=== PATIENT | female | born 1940 | race Caucasian/White ===

== ENCOUNTER → 2017-02-16 | Outpatient (CLI) | payer MEDICARE, BC ==
[2017-02-16 10:00] LABS: HEMATOCRIT 40.7 % (36.0-47.0); HEMOGLOBIN 13.8 g/dL (12.0-15.5); HGB HCT DIFFERENCE 0.7; MEAN CORPUSCULAR HEMOGLOBIN 30.4 pg (27.0-33.4); MEAN CORPUSCULAR HGB CONC 33.9 g/dL (32.0-36.0); MEAN CORPUSCULAR VOLUME 90 fl (80-97); RED BLOOD COUNT 4.54 10^6/uL (3.72-5.28); RED CELL DISTRIBUTION WIDTH 12.7 % (11.5-14.0); WHITE BLOOD COUNT 3.6 10^3/uL (4.0-10.5)
[2017-02-16 10:12] LABS: ANION GAP 12 (5-19); BLOOD UREA NITROGEN 22 mg/dL (7-20); CALCIUM 10.1 mg/dL (8.4-10.2); CARBON DIOXIDE 26 mmol/L (22-30); CHLORIDE 106 mmol/L (98-107); CHOLESTEROL 152.93 mg/dL (0-200); CREATININE RESULT 0.89 mg/dL (0.52-1.25); Direct HDL 77 mg/dL (>40); GLUCOSE 88 mg/dL (75-110); POTASSIUM 4.5 mmol/L (3.6-5.0); SODIUM 144.3 mmol/L (137-145); TRIGLYCERIDES 37 mg/dL (<150)
[2017-02-16 10:22] LABS: DIRECT LDL 55 mg/dL (<100)
== END ==
LOC: OD 09:05
PROVIDERS: ATTEND Family Medicine
DX: E78.2 Mixed hyperlipidemia (principal); I10 Essential (primary) hypertension; Z79.891 Long term (current) use of opiate analgesic; D64.9 Anemia, unspecified
CPT/HCPCS: 36415; 80048; 80061; 83036; 84443; 85027

== ENCOUNTER → 2017-09-05 | Outpatient (CLI) | payer MEDICARE, BC ==
--- NOTE | 2017-09-05 17:11 | WOMENS IMAGING REPORT ---
EXAM DESCRIPTION: 3D SCREENING MAMMO BILAT COMPLETED DATE/TIME: 09/05/2017 10:28 am REASON FOR STUDY: SCREENING MAMMO Z12.31 ENCNTR SCREEN MAMMOGRAM FOR MALIGNANT NEOPLASM OF JENNIE COMPARISON: Multiple since 2008 TECHNIQUE: Standard craniocaudal and mediolateral oblique views of each breast recorded using digita l acquisition and breast tomosynthesis. LIMITATIONS: None. FINDINGS: Findings present which are benign by mammographic criteria. No suspicious masses, calcifi cations or architectural distortion. Pertinent benign findings: Benign breast parenchymal calcifications bilaterally Read with the assistance of CAD. .[facility] - R2 Cenova Version 1.3 .[facility] Imaging - R2 Cenova Version 1.3 .[facility] Imaging - R2 Cenova Version 2.4 .[facility] - R2 Cenova Version 2.4 .[facility] - R2 Zinc Plating Machine Operator Version 9.2 Benign mammographic findings may include one or more of the following: Smooth masses, popcorn/rim/co arse calcifications, asymmetries, post-procedure changes, and lesions with long-standing stability. IMPRESSION: BENIGN MAMMOGRAPHIC FINDINGS. BIRADS 2 BREAST DENSITY: b. There are scattered areas of fibroglandular density. BIRAD: 2 BENIGN FINDING(S) RECOMMENDATION: RECOMMENDATION: ROUTINE SCREENING Please continue yearly bilateral screening tomosynthesis in August 2018 COMMENT: The patient has been notified of the results by letter per SA requirements. Additional no tification policies are in place for contacting patient with suspicious or incomplete findings. Quality ID #[id number]: [employer] [place] [employer] recommends an annual screening mammogram for women aged 40 years or over. This facility utilizes a reminder system to ensure that all patients receive reminder letters, and/or direct phone calls for appointments. This includes reminders for routine scr eening mammograms, diagnostic mammograms, or other Breast Imaging Interventions when appropriate. Th is patient will be placed in the appropriate reminder system. [employer] [place] [employer] (ACR) has developed recommendations for screening MRI of the breast s in certain patient populations, to be used in conjunction with mammography. Breast MRI surveillanc e may be appropriate for women with more than 20% lifetime risk of developing breast cancer as deter mined by genetic testing, significant family history of the disease, or history of mantle radiation f or Hodgkins Disease. ACR Practice Guidelines 2008. DBT Technology DBT is a type of tomographic mammography. With conventional mammography, overlapping breast tissue ma y make lesions difficult to detect, even with good compression. DBT uses an x-ray tube that rotates a round the breast, taking images at different angles. These images are then combined to create thin sl ices of the breast that the radiologist can view as a 3D reconstruction. The ScaleDB unit can perform full-field digital mammograms (2D imaging); or DBT (3D imaging); or both, in a combination mode that quickly performs both the mammogram and the tomosynthesis scan while the breast is still compressed. PQRS 6045F: Fluoroscopic imaging is not utilized for breast tomosynthesis. TECHNICAL DOCUMENTATION: FINDING NUMBER: (1) ASSESSMENT: (1) JOB ID: [id number] [employer]- All Rights Reserved
== END ==
LOC: WI 09:38
PROVIDERS: ATTEND Family Medicine
DX: Z12.31 Encounter for screening mammogram for malignant neoplasm of breast (principal)
CPT/HCPCS: 77063; G0202; 77067

== ENCOUNTER → 2017-12-21 | Outpatient (CLI) | payer MEDICARE, BC ==
--- NOTE | 2017-12-21 15:46 | RADIOLOGY REPORT (SQ) ---
EXAM DESCRIPTION: NM WHOLE BODY BONE SCAN COMPLETED DATE/TIME: 12/21/2017 2:57 pm REASON FOR STUDY: M54.16 RADICULOPATHY, LUMBAR REGION M54.16 RADICULOPATHY, LUMBAR REGION COMPARISON: No available imaging studies for comparison. RADIONUCLIDE AND DOSE: 19.66 millicuries Tc99m HDP. The route of agent administration: Intravenous. ADDITIONAL DRUGS AND DOSES: None. TECHNIQUE: Routine delayed images at 3 hour post radionuclide injection acquired of the bony skeleto n including anterior and posterior whole-body projections and additional focused images as needed. LIMITATIONS: None. FINDINGS: BONES: Mild S-shaped curvature in the spine. Scattered focal areas of activity at several levels. No abnormal uptake in the vertebral bodies. Focal areas of activity in the sternoclavicula r joints and acromioclavicular joints. KIDNEYS: Symmetric excretion without obstruction. OTHER: No other significant finding. IMPRESSION: MILD S-SHAPED CURVATURE IN THE SPINE. SCATTERED FOCAL AREAS OF ACTIVITY CONSISTENT WITH DEGENERATIVE CHANGES. SIMILAR FINDINGS IN THE STERNOCLAVICULAR JOINTS AND ACROMIOCLAVICULAR JOINTS. NO OTHER SIGNIFICANT FINDINGS. COMMENT: Quality measure 147: No available prior imaging studies for comparison TECHNICAL DOCUMENTATION: JOB ID: [id number] [employer]- All Rights Reserved Reading location - IP/workstation name: [email or web address]
== END ==
LOC: RAD 10:43
PROVIDERS: ATTEND Orthopaedic Surgery Orthopaedic Surgery of the Spine
DX: M54.16 Radiculopathy, lumbar region (principal)
CPT/HCPCS: 78306; A9561; Q9969

== ENCOUNTER → 2018-02-22 | Outpatient (CLI) | payer MEDICARE, BC ==
[2018-02-22 09:07] LABS: HEMATOCRIT 38.4 % (36.0-47.0); MEAN CORPUSCULAR HEMOGLOBIN 30.3 pg (27.0-33.4); MEAN CORPUSCULAR HGB CONC 33.7 g/dL (32.0-36.0); MEAN CORPUSCULAR VOLUME 90 fl (80-97); PLATELET COUNT 295 10^3/uL (150-450); RED BLOOD COUNT 4.27 10^6/uL (3.72-5.28); RED CELL DISTRIBUTION WIDTH 13.2 % (11.5-14.0); WHITE BLOOD COUNT 3.3 10^3/uL (4.0-10.5)
[2018-02-22 09:36] LABS: ANION GAP 7 (5-19); BLOOD UREA NITROGEN 20 mg/dL (7-20); CALCIUM 9.8 mg/dL (8.4-10.2); CARBON DIOXIDE 30 mmol/L (22-30); CHLORIDE 103 mmol/L (98-107); CHOLESTEROL 149.04 mg/dL (0-200); GLUCOSE 87 mg/dL (75-110); POTASSIUM 4.4 mmol/L (3.6-5.0); TRIGLYCERIDES 42 mg/dL (<150)
[2018-02-22 09:48] LABS: DIRECT LDL 59 mg/dL (<100)
== END ==
LOC: OD 08:27
PROVIDERS: ATTEND Family Medicine
DX: E78.2 Mixed hyperlipidemia (principal); I10 Essential (primary) hypertension; D64.9 Anemia, unspecified; Z79.899 Other long term (current) drug therapy
CPT/HCPCS: 36415; 80048; 80061; 83036; 84443; 85027

== ENCOUNTER → 2018-03-14 | Outpatient (CLI) | payer MEDICARE, BC ==
--- NOTE | 2018-03-14 13:37 | RADIOLOGY REPORT (SQ) ---
EXAM DESCRIPTION: KUB COMPLETED DATE/TIME: 03/14/2018 10:44 am REASON FOR STUDY: DIARRHEA, UNSPECIFIED,UNSPECIFIED ABDOMINAL PAIN COMPARISON: None. NUMBER OF VIEWS: One view. TECHNIQUE: Supine radiographic image of the abdomen acquired. LIMITATIONS: None. FINDINGS: BOWEL GAS PATTERN: Normal bowel gas pattern. No dilated loops. CALCIFICATIONS: No suspicious calcifications. SOFT TISSUES: No gross mass or suggestion of organomegaly. HARDWARE: Clips right upper quadrant. BONES: No bone lesions or fracture. OTHER: No other significant finding. IMPRESSION: NO RADIOGRAPHIC EVIDENCE FOR ACUTE ABDOMINAL DISEASE. Reading location - IP/workstation name: [email or web address]
== END ==
LOC: OD 10:27
PROVIDERS: ATTEND Family Medicine
DX: R19.7 Diarrhea, unspecified (principal); R10.9 Unspecified abdominal pain
CPT/HCPCS: 74018

== ENCOUNTER → 2018-04-21 | Outpatient (CLI) | payer MEDICARE, BC ==
[2018-04-21 13:32] LABS: HEMATOCRIT 35.5 % (36.0-47.0); HEMOGLOBIN 11.8 g/dL (12.0-15.5); MEAN CORPUSCULAR HEMOGLOBIN 29.6 pg (27.0-33.4); MEAN CORPUSCULAR HGB CONC 33.3 g/dL (32.0-36.0); MEAN CORPUSCULAR VOLUME 89 fl (80-97); PLATELET COUNT 467 10^3/uL (150-450); RED CELL DISTRIBUTION WIDTH 13.8 % (11.5-14.0); WHITE BLOOD COUNT 8.3 10^3/uL (4.0-10.5)
[2018-04-21 14:14] LABS: ALANINE AMINOTRANSFERASE 18 U/L (9-52); ALBUMIN 3.4 g/dL (3.5-5.0); ALKALINE PHOSPHATASE 42 U/L (38-126); ANION GAP 11 (5-19); ASPARTATE AMINO TRANSFERASE 26 U/L (14-36); BILIRUBIN,DIRECT 0.5 mg/dL (0.0-0.4); BILIRUBIN,TOTAL 0.7 mg/dL (0.2-1.3); BLOOD UREA NITROGEN 28 mg/dL (7-20); CALCIUM 9.4 mg/dL (8.4-10.2); CARBON DIOXIDE 28 mmol/L (22-30); CHLORIDE 106 mmol/L (98-107); GLUCOSE 122 mg/dL (75-110); POTASSIUM 4.3 mmol/L (3.6-5.0); SODIUM 144.6 mmol/L (137-145); TOTAL PROTEIN 5.9 g/dL (6.3-8.2)
== END ==
LOC: LAB 13:15
PROVIDERS: ATTEND Nurse Practitioner Family
DX: A04.72 Enterocolitis due to Clostridium difficile, not specified as recurrent (principal)
CPT/HCPCS: 36415; 80053; 85027; 87177; 87493

== ENCOUNTER → 2018-05-10 | Outpatient (CLI) | payer MEDICARE, BC | LOC: LAB 16:33 | PROVIDERS: ATTEND Family Medicine | DX: K52.9 Noninfective gastroenteritis and colitis, unspecified (principal) | CPT/HCPCS: 87493 ==

== ENCOUNTER 2018-05-12 11:14 | Inpatient (IN) | payer MEDICARE, BC ==
[2018-05-12 11:51] LABS: ABSOLUTE LYMPHOCYTES (AUTO) 0.3 10^3/uL (0.5-4.7); ABSOLUTE MONOCYTES (AUTO) 0.2 10^3/uL (0.1-1.4); ABSOLUTE NEUT (AUTO) 5.7 10^3/uL (1.7-8.2); BASOPHILS % (AUTO) 0.1 % (0-2); EOSINOPHILS % (AUTO) 0.4 % (0-6); HEMATOCRIT 36.9 % (36.0-47.0); HEMOGLOBIN 12.1 g/dL (12.0-15.5); LYMPHOCYTES % (AUTO) 5.6 % (13-45); MEAN CORPUSCULAR HEMOGLOBIN 28.6 pg (27.0-33.4); MEAN CORPUSCULAR HGB CONC 32.7 g/dL (32.0-36.0); MEAN CORPUSCULAR VOLUME 87 fl (80-97); MONOCYTES % (AUTO) 3.4 % (3-13); PLATELET COUNT 252 10^3/uL (150-450); RED BLOOD COUNT 4.22 10^6/uL (3.72-5.28); RED CELL DISTRIBUTION WIDTH 14.7 % (11.5-14.0); SEGMENTED NEUTROPHILS % (AUTO) 90.5 % (42-78); TOTAL CELLS COUNTED % (AUTO) 100 %; WHITE BLOOD COUNT 6.3 10^3/uL (4.0-10.5)
[2018-05-12 12:09] LABS: ALANINE AMINOTRANSFERASE 21 U/L (9-52); ALBUMIN 3.2 g/dL (3.5-5.0); ALKALINE PHOSPHATASE 37 U/L (38-126); ANION GAP 11 (5-19); ASPARTATE AMINO TRANSFERASE 29 U/L (14-36); BILIRUBIN,DIRECT 0.3 mg/dL (0.0-0.4); BILIRUBIN,TOTAL 0.7 mg/dL (0.2-1.3); BLOOD UREA NITROGEN 22 mg/dL (7-20); CARBON DIOXIDE 24 mmol/L (22-30); CHLORIDE 104 mmol/L (98-107); GLUCOSE 143 mg/dL (75-110); POTASSIUM 3.8 mmol/L (3.6-5.0); SODIUM 138.5 mmol/L (137-145); TOTAL PROTEIN 5.6 g/dL (6.3-8.2)
[2018-05-12] MEDS ORDERED: METRONIDAZOLE 500 MG/NS RTU 100 ML IV ONE (12:33)
[2018-05-12] MEDS ORDERED: NORMAL SALINE 1000 ML 1,000 ML IV ONE ×2 (12:33→15:00)
--- NOTE | 2018-05-12 12:34 | ER Document Report ---
ED General - General Chief Complaint: General Weakness Stated Complaint: GENERAL WEAKNESS Time Seen by Provider: 05/12/18 12:01 TRAVEL OUTSIDE OF THE [place] IN LAST 30 DAYS: No - HPI Notes: Patient is an 78-year-old female complaining of intermittent abdominal cramping , watery diarrhea, generalized weakness 1 week. Patient states that she has had this watery diarrhea since the start of February and was diagnosed with C. difficile. Patient states that she did finish those medications, but still has remaining symptoms. Earlier this month daughter states that her also has C. difficile, was found to be vancomycin-resistant and is now septic and going to hospice care. Patient did have a C. difficile test yesterday that was negative, but they were told by infectious disease DrWoodrow today that they should not go by that test and she should be treated based on her symptomatology with recent history of C. difficile. Patient states that she is still able to eat and drink, but does have a decreased p.o. intake. She has not noticed any black tarry stools or hematochezia. Denies any headache, fever, neck pain, URI , sore throat, chest pain, palpitations, syncope, cough, shortness of breath, wheeze, dyspnea, nausea/vomiting, urinary retention, dysuria, hematuria, back pain, or rash. - Related Data Allergies/Adverse Reactions: Sulfa (Sulfonamide Antibiotics) Allergy (Severe, Verified 11/07/12 08:46) ITCHING AND HIVES Past Medical History - Social History Smoking Status: Never Smoker Chew tobacco use (# tins/day): No Frequency of alcohol use: None Drug Abuse: None Family History: Reviewed & Not Pertinent Patient has suicidal ideation: No Patient has homicidal ideation: No - Past Medical History Cardiac Medical History: Reports: Hx Hypercholesterolemia Denies: Hx Coronary Artery Disease, Hx Heart Attack, Hx Hypertension Pulmonary Medical History: Denies: Hx Asthma, Hx Bronchitis, Hx COPD, Hx Pneumonia Neurological Medical History: Denies: Hx Cerebrovascular Accident, Hx Seizures Renal/ Medical History: Denies: Hx Peritoneal Dialysis Musculoskeletal Medical History: Reports Hx Arthritis Past Surgical History: Reports: Hx Hysterectomy. Denies: Hx Pacemaker - Immunizations Hx Diphtheria, Pertussis, Tetanus Vaccination: No Review of Systems - Review of Systems -: Yes All other systems reviewed and negative Physical Exam - Vital signs Vitals: Temp 99.7 F 05/12/18 11:38 - Notes Notes: PHYSICAL EXAMINATION: accompanied by nurse shabana. GENERAL: Well-appearing, well-nourished and in no acute distress. HEAD: Atraumatic, normocephalic. EYES: Pupils equal round and reactive to light, extraocular movements intact, sclera anicteric, conjunctiva are normal. ENT: Nares patent and without discharge. oropharynx clear without exudates. No tonsilar hypertrophy or erythema. Moist mucous membranes. NECK: Normal range of motion, supple without lymphadenopathy LUNGS: Breath sounds clear to auscultation bilaterally and equal. No wheezes rales or rhonchi. HEART: Regular rate and rhythm without murmurs, rubs, gallops. ABDOMEN: Soft, nondistended abdomen. No guarding, no rebound. No masses appreciated. Normal bowel sounds present. No CVA tenderness bilaterally. + mild generalized tenderness. Musculoskeletal: FROM to passive/active. Strength 5+/5. Extremities: No cyanosis, clubbing, or edema b/l. Peripheral pulses 2+. Capillary refill less than 3 seconds. NEUROLOGICAL: Normal speech, normal gait. PSYCH: Normal mood, normal affect. SKIN: small bed sore to the left buttock. Course - Re-evaluation Re-evalutation: 05/12/18 12:37 Patient is an afebrile 78-year-old female who presents to the ED with watery diarrhea and generalized weakness, I suspect that she still could have C. difficile despite a negative test yesterday based on her symptomatology and presentation. Patient is tachycardic. PE is otherwise unremarkable aside from generalized mild tenderness to the abdomen. CBC and CMP are generally unremarkable aside from a mild left shift without leukocytosis. Urinalysis, lactic, and blood cultures are pending. Patient has been given fluids and another liter is pending. I did review this case with Dr. Jaramillo who recommends admission for further eval and management. I did order cipro/flagyl IV as well. Pt/family in agreement. 05/12/18 12:50 Reviewed with FLAVIO Bha who accepted patient for admit to [facility]. - Vital Signs Vital signs: Temp Pulse Resp BP Pulse Ox 99.7 F 05/12/18 11:38 - Laboratory Result Diagrams: 05/12/18 11:20 05/12/18 11:20 Laboratory results interpreted by me: 05/12/18 05/12/18 11:20 11:20 RDW 14.7 H Seg Neutrophils % 90.5 H Lymphocytes % 5.6 L Absolute Lymphocytes 0.3 L BUN 22 H Glucose 143 H Alkaline Phosphatase 37 L Total Protein 5.6 L Albumin 3.2 L Discharge - Discharge Clinical Impression: Generalized weakness, Watery diarrhea Condition: Stable Disposition: ADMITTED INPATIENT Admitting Provider: Hospitalist - POLICE SHIFT COMMANDER Angie Bah Unit Admitted: IMCU Referrals: FABRICIO MEDEIROS MD [Primary Care Provider] - Follow up as needed
[2018-05-12] MEDS ORDERED: CIPROFLOXACIN 400 MG/D5W RTU 400 MG/200 ML RTUPB IV SCH (13:00)
[2018-05-12] MEDS ORDERED: ONDANSETRON 4 MG TAB.RAPDIS PO PRN (14:24)
[2018-05-12 14:56] LABS: APPEARANCE,URINE SLIGHTLY-CLOUDY; BILIRUBIN,URINE NEGATIVE (NEGATIVE); COLOR,URINE YELLOW; GLUCOSE, URINE NEGATIVE (NEGATIVE); KETONES,URINE NEGATIVE (NEGATIVE); LEUKOCYTE ESTERASE,URINE NEGATIVE (NEGATIVE); NITRITE,URINE NEGATIVE (NEGATIVE); PROTEIN,URINE NEGATIVE (NEGATIVE); UROBILINOGEN,URINE NEGATIVE mg/dL (<2.0)
[2018-05-12] MEDS: VANCOMYCIN HCL INJ 500 MG VIAL PO SCH ×2 (16:04→22:04)
[2018-05-12] MEDS: NORMAL SALINE 1000 ML 1,000 ML IV PRN (16:12)
[2018-05-12] MEDS ORDERED: MORPHINE SULFATE 10 MG/ML INJ IV PRN (18:32)
[2018-05-12] MEDS ORDERED: ACETAMINOPHEN 650 MG SUPP.RECT PR PRN (18:32)
--- NOTE | 2018-05-12 18:32 | PDOC H&P ---
History of Present Illness Admission Date/PCP: 05/12/18 12:55 FABRICIO MEDEIROS MD Patient complains of: DIARRHEA History of Present Illness: JOSE LUIS JACOBS is a 78 year old female presents to [facility] with a one-week history of watery diarrhea. The patient was diagnosed with C. difficile in March 2018, she was treated with oral vancomycin and her symptoms resolved. She states that approximately 1 week ago she began experiencing watery diarrhea again. Of note , her has also been diagnosed with C. difficile colitis stemming from antibiotic therapy to treat cellulitis. He subsequently developed sepsis and vancomycin resistant C. difficile. Admitted to hospice care yesterday. The patient states that her diarrhea has been ongoing (day and night) for the last week. She went to see her primary care doctor who performed a C. difficile PCR which was negative. He prescribed Imodium and instructed the patient take Tylenol for her associated abdominal pain. The patient's family was very concerned about her symptomology, especially given the current state of the patient's , which prompted them to bring her to the emergency department. PMH includes HLD, C. difficile Upon arrival to the emergency department, the patient's vital signs were BP 96/ 54 HR 120 T 99.7 RR 22 SPO2 100% RA. Her lab work is relatively benign. No leukocytosis. There is evidence of a left shift without elevated WBCs. UA negative for UTI. Stool culture and C. difficile PCR pending. Upon assessment , the patient is awake and oriented. She appears very pale. Oral mucous membranes are dry and tacky. Lung sounds clear to auscultation. S1S2. No murmur, rub, gallop. Entire abdomen TTP. The patient states she experienced 3- 4 episodes of diarrhea today. She denies nausea or vomiting, states she is having diarrhea day and night. She denies fever, endorses chills. Admit to hospitalist service for treatment of suspected recurrence of C. difficile infection. Past Medical History Cardiac Medical History: Reports: Hyperlipidema Denies: Coronary Artery Disease, Myocardial Infarction, Hypertension Pulmonary Medical History: Denies: Asthma, Bronchitis, Chronic Obstructive Pulmonary Disease (COPD), Pneumonia Neurological Medical History: Denies: Seizures GI Medical History: Reports: Other - C. difficile March 2018 Musculoskeltal Medical History: Reports: Arthritis Hematology: Denies: Anemia Past Surgical History Past Surgical History: Reports: Appendectomy, Cholecystectomy, Hysterectomy Denies: Pacemaker Social History Information Source: Patient, Relative Lives with: Family Smoking Status: Never Smoker Frequency of Alcohol Use: None - Advance Directive Resuscitation Status: Do Not Resuscitate Family History Family History: Reviewed & Not Pertinent Parental Family History Reviewed: Yes Children Family History Reviewed: Yes Sibling(s) Family History Reviewed.: Yes Medication/Allergy Home Medications: Alendronate Sodium [Fosamax 70 mg Tablet] 70 mg PO MO@0800 11/06/12 Fenofibrate [Lofibra] 160 mg PO QHS 11/06/12 Simvastatin [Zocor 40 mg Tablet] 40 mg PO QHS 11/06/12 Desmopressin Acetate [Ddavp] 0.2 mg PO QHS 05/12/18 Fesoterodine Fumarate [Toviaz] 4 mg PO QHS 05/12/18 Multivit/Folic Acid/Vit K1 [One-A-Day Women's 50 Plus Tab] 1 each PO DAILY 05/12 Allergies/Adverse Reactions: Sulfa (Sulfonamide Antibiotics) Allergy (Severe, Verified 05/12/18 13:40) ITCHING AND HIVES Review of Systems All systems: reviewed and no additional remarkable complaints except as stated Physical Exam Vital Signs: Temp Pulse Resp BP Pulse Ox 99.7 F 26 H 120/51 L 94 05/12/18 11:38 05/12/18 16:00 05/12/18 16:00 05/12/18 16:00 Intake & Output 05/11/18 05/12/18 05/13/18 06:59 06:59 06:59 Intake Total 1000 Balance 1000 General appearance: PRESENT: no acute distress, thin Head exam: PRESENT: atraumatic Eye exam: PRESENT: conjunctiva pink, PERRLA Mouth exam: PRESENT: dry mucosa Neck exam: PRESENT: full ROM Respiratory exam: PRESENT: clear to auscultation sebastien, symmetrical, unlabored Cardiovascular exam: PRESENT: +S1, +S2, tachycardia Pulses: PRESENT: normal radial pulses, normal dorsalis pedis pul Vascular exam: PRESENT: pallor GI/Abdominal exam: PRESENT: normal bowel sounds, soft, tenderness Rectal exam: PRESENT: deferred Extremities exam: PRESENT: full ROM Musculoskeletal exam: PRESENT: ambulatory, full ROM Neurological exam: PRESENT: alert, awake, oriented to person, oriented to place , oriented to time, oriented to situation Psychiatric exam: PRESENT: appropriate affect Skin exam: PRESENT: dry, intact, pallor Results Laboratory Results: 05/12/18 14:34 Urine Color YELLOW Urine Appearance SLIGHTLY-CLOUDY Urine pH 5.0 Ur Specific [place] 1.020 Urine Protein NEGATIVE Urine Glucose (UA) NEGATIVE Urine Ketones NEGATIVE Urine Blood NEGATIVE Urine Nitrite NEGATIVE Ur Leukocyte Esterase NEGATIVE Urine WBC (Auto) 0 Urine RBC (Auto) 2 Status: Imported from PACS Assessment & Plan - Diagnosis (1) Diarrhea Qualifiers: Diarrhea type: presumed infectious Qualified Code(s): R19.7 - Diarrhea, unspecified Is this a current diagnosis for this admission?: Yes Plan: Likely secondary to C. difficile, although recent C. difficile PCR negative at PMDs office Other possible etiologies gastroenteritis Repeat C. difficile PCR Stool culture pending KUB pending IVF resuscitation in emergency department Continue maintenance IVF Patient remains afebrile. no leukocytosis. This is presumed to be the patient's first recurrence of C. difficile following initial episode in March 2018. Per ISDA guidelines, initiate vancomycin 125 mg p.o. every 6 hours. ID consulted, appreciate their recommendations. (2) Generalized weakness Is this a current diagnosis for this admission?: Yes Plan: Secondary to dehydration, diarrhea and poor nutritional intake IVF resuscitation with 2L NS in emergency department Continue maintenance IVF Encourage p.o. intake -regular diet if tolerated Antiemetics as needed (3) HLD (hyperlipidemia) Is this a current diagnosis for this admission?: Yes Plan: History of HLD Will resume home dose statin - Time Time Spent: 30 to 50 Minutes Medications reviewed and adjusted accordingly: Yes Anticipated discharge: Home - Inpatient Certification Based on my medical assessment, after consideration of the patient's comorbidities, presenting symptoms, or acuity I expect that the services needed warrant INPATIENT care.: Yes I certify that my determination is in accordance with my understanding of Medicare's requirements for reasonable and necessary INPATIENT services [42 CFR 412.3e].: Yes Medical Necessity: Risk of Complication if Not Cared For in Hospital - Plan Summary Plan Summary: ADMIT TO IMCU. CONTINUE PO ANTIBIOTICS. CONTINUE IVF.
--- NOTE | 2018-05-12 21:14 | RADIOLOGY REPORT (SQ) ---
EXAM DESCRIPTION: KUB/ABDOMEN (SINGLE VIEW) COMPLETED DATE/TIME: 05/12/2018 7:13 pm REASON FOR STUDY: abdominal pain COMPARISON: 03/14/2018 NUMBER OF VIEWS: One view. TECHNIQUE: Supine radiographic image of the abdomen acquired. LIMITATIONS: None. FINDINGS: BOWEL GAS PATTERN: Gas is seen within nondistended large bowel. No evidence of obstructio n. CALCIFICATIONS: No suspicious calcifications. SOFT TISSUES: No gross mass or suggestion of organomegaly. HARDWARE: Cholecystectomy clips. BONES: No acute fracture. No worrisome bone lesions. OTHER: No other significant finding. IMPRESSION: NO RADIOGRAPHIC EVIDENCE FOR ACUTE ABDOMINAL DISEASE. TECHNICAL DOCUMENTATION: JOB ID: [id number] [employer]- All Rights Reserved Reading location - IP/workstation name: [email or web address]
[2018-05-13] MEDS ORDERED: ACETAMINOPHEN 325 MG TABLET PO PRN (02:31)
[2018-05-13] MEDS: VANCOMYCIN HCL INJ 500 MG VIAL PO SCH ×4 (02:43→21:29)
[2018-05-13 05:33] LABS: HEMATOCRIT 31.9 % (36.0-47.0); HEMOGLOBIN 10.8 g/dL (12.0-15.5); MEAN CORPUSCULAR HEMOGLOBIN 29.3 pg (27.0-33.4); MEAN CORPUSCULAR HGB CONC 33.9 g/dL (32.0-36.0); MEAN CORPUSCULAR VOLUME 86 fl (80-97); RED BLOOD COUNT 3.69 10^6/uL (3.72-5.28); RED CELL DISTRIBUTION WIDTH 14.3 % (11.5-14.0); WHITE BLOOD COUNT 7.6 10^3/uL (4.0-10.5)
[2018-05-13 05:52] LABS: ALANINE AMINOTRANSFERASE 26 U/L (9-52); ALBUMIN 2.1 g/dL (3.5-5.0); ALKALINE PHOSPHATASE 31 U/L (38-126); ANION GAP 10 (5-19); ASPARTATE AMINO TRANSFERASE 32 U/L (14-36); BILIRUBIN,DIRECT 0.4 mg/dL (0.0-0.4); BILIRUBIN,TOTAL 0.7 mg/dL (0.2-1.3); BLOOD UREA NITROGEN 18 mg/dL (7-20); CALCIUM 7.6 mg/dL (8.4-10.2); CARBON DIOXIDE 18 mmol/L (22-30); CHLORIDE 110 mmol/L (98-107); GLUCOSE 128 mg/dL (75-110); SODIUM 138.2 mmol/L (137-145); TOTAL PROTEIN 4.1 g/dL (6.3-8.2)
[2018-05-13 06:19] LABS: ABSOLUTE LYMPHOCYTES# (MANUAL) 2.3 10^3/uL (0.5-4.7); ABSOLUTE MONOCYTES # (MANUAL) 0.2 10^3/uL (0.1-1.4); ABSOLUTE NEUTROPHILS# (MANUAL) 5.2 10^3/uL (1.7-8.2); BAND NEUTROPHILS % (MANUAL) 6 % (3-5); BASOPHILS % (MANUAL) 0 % (0-2); EOSINOPHILS % (MANUAL) 0 % (0-6); LYMPHOCYTES % (MANUAL) 30 % (13-45); MONOCYTES % (MANUAL) 2 % (3-13); SEGMENTED NEUTROPHILS % (MAN) 62 % (42-78); TOTAL CELLS COUNTED 100
[2018-05-13 06:21] LABS: PLATELET COUNT 185 10^3/uL (150-450)
[2018-05-13 06:23] LABS: PLATELET COMMENT ADEQUATE; RBC MORPHOLOGY COMMENT NORMO-CYTIC/CHROMIC
[2018-05-13] MEDS ORDERED: POTASSIUM CHLORIDE 20 MEQ/50 ML RTU IV ONE (06:30)
[2018-05-13] MEDS ORDERED: METRONIDAZOLE 500 MG/NS RTU 500 MG/100 ML RTUPB IV SCH (09:00)
[2018-05-13] MEDS ORDERED: NORMAL SALINE 1000 ML 1,000 ML IV ONE ×2 (09:36→09:37)
[2018-05-13] MEDS ORDERED: POTASSI CL 20 MEQ/50 ML RIDER 20 MEQ/50 ML RTUPB IV ONE (09:39)
[2018-05-13] MEDS: POTASSI CL 20 MEQ/50 ML RIDER 20 MEQ/50 ML RTUPB IV SCH ×3 (10:31→15:35)
[2018-05-13] MEDS: LIDOCAINE 5% (700 MG) TRANSDERMAL ADH..PATCH TP SCH (13:19)
[2018-05-13] MEDS: METRONIDAZOLE 500 MG/NS RTU 500 MG/100 ML RTUPB IV SCH ×2 (14:01→21:30)
[2018-05-13] MEDS: NORMAL SALINE 1000 ML 1,000 ML IV PRN (15:11)
--- NOTE | 2018-05-13 17:05 | RADIOLOGY REPORT (SQ) ---
EXAM DESCRIPTION: CHEST SINGLE VIEW COMPLETED DATE/TIME: 05/13/2018 4:55 pm REASON FOR STUDY: fever. tachycardia. evaluate for infection source. COMPARISON: None. EXAM PARAMETERS: NUMBER OF VIEWS: One view. TECHNIQUE: Single frontal radiographic view of the chest acquired. RADIATION DOSE: NA LIMITATIONS: None. FINDINGS: LUNGS AND PLEURA: Trace left pleural effusion. No consolidation. No pneumothorax. MEDIASTINUM AND HILAR STRUCTURES: Age-appropriate. HEART AND VASCULAR STRUCTURES: Heart normal in size. Normal vasculature. BONES: No acute findings. HARDWARE: None in the chest. OTHER: No other significant finding. IMPRESSION: Trace left pleural effusion. No consolidation. TECHNICAL DOCUMENTATION: JOB ID: [id number] [employer]- All Rights Reserved Reading location - IP/workstation name: [email or web address]
--- NOTE | 2018-05-13 17:28 | PDOC PROGRESS REPORT ---
Subjective Progress Note for:: 05/13/18 Subjective:: 78 y.o. F admitted to [facility] for diarrhea and suspected C. difficile. Patient seen this morning on rounds, she is resting comfortably in bed. She states her abdomen is quite 'sore.' She also states that she attempted to eat dinner last night, but took one bite of food and immediately became nauseous. Denies vomiting. The patient has been able to tolerate sips of water and juice. Patient states she has been experiencing incontinent episodes of watery diarrhea all night. Upon assessment, the patient appears pale, dry tacky mucous membranes, lung sounds clear to auscultation, S1-S2, no murmur rubs or gallops, abdomen is diffusely tender to palpation, + bowel sounds. Patient was mildly hypotensive this morning, BP 90s/50s. Bolused with 2L IVF. BP returned to normal range. Continued on maintenance IVF. Reason For Visit: DIARRHEA WEAKNESS Physical Exam Vital Signs: Temp Pulse Resp BP Pulse Ox 97.5 F 113 H 16 118/48 L 100 05/13/18 13:02 05/13/18 14:00 05/13/18 13:02 05/13/18 13:02 05/13/18 13:02 Intake & Output 05/12/18 05/13/18 05/14/18 06:59 06:59 06:59 Intake Total 2774 100 Output Total 375 Balance 2399 100 Weight 69.6 kg General appearance: PRESENT: thin Head exam: PRESENT: atraumatic Eye exam: PRESENT: conjunctiva pale, PERRLA Mouth exam: PRESENT: dry mucosa Neck exam: PRESENT: full ROM Respiratory exam: PRESENT: clear to auscultation sebastien, symmetrical, unlabored Cardiovascular exam: PRESENT: RRR, +S1, +S2 Pulses: PRESENT: normal radial pulses, normal dorsalis pedis pul Vascular exam: PRESENT: pallor GI/Abdominal exam: PRESENT: normal bowel sounds, soft, tenderness - Diffusely tender. ABSENT: distended, firm, guarding Rectal exam: PRESENT: deferred Gentrourinary exam: PRESENT: indwelling catheter Extremities exam: PRESENT: full ROM. ABSENT: joint swelling, pedal edema Musculoskeletal exam: PRESENT: ambulatory, full ROM Neurological exam: PRESENT: alert, awake, oriented to person, oriented to place , oriented to time, oriented to situation Psychiatric exam: PRESENT: appropriate affect Skin exam: PRESENT: dry, intact, pallor, warm Results Laboratory Results: 05/13/18 05:14 05/13/18 05:14 05/13/18 05/13/18 05/13/18 05:14 05:14 05:14 WBC 7.6 RBC 3.69 L Hgb 10.8 L Hct 31.9 L MCV 86 MCH 29.3 MCHC 33.9 RDW 14.3 H Plt Count 185 Seg Neutrophils % Not Reportable Lymphocytes % Not Reportable Monocytes % Not Reportable Eosinophils % Not Reportable Basophils % Not Reportable Absolute Neutrophils Not Reportable Absolute Lymphocytes Not Reportable Absolute Monocytes Not Reportable Absolute Eosinophils Not Reportable Absolute Basophils Not Reportable Sodium 138.2 Potassium 3.0 L* Chloride 110 H Carbon Dioxide 18 L Anion Gap 10 BUN 18 Creatinine 0.68 Est GFR ( Amer) > 60 Est GFR (Non-Af Amer) > 60 Glucose 128 H Calcium 7.6 L Magnesium Total Bilirubin 0.7 AST 32 ALT 26 Alkaline Phosphatase 31 L C-Reactive Protein 186.6 H Total Protein 4.1 L Albumin 2.1 L 05/13/18 05:14 WBC RBC Hgb Hct MCV MCH MCHC RDW Plt Count Seg Neutrophils % Lymphocytes % Monocytes % Eosinophils % Basophils % Absolute Neutrophils Absolute Lymphocytes Absolute Monocytes Absolute Eosinophils Absolute Basophils Sodium Potassium Chloride Carbon Dioxide Anion Gap BUN Creatinine Est GFR ( Amer) Est GFR (Non-Af Amer) Glucose Calcium Magnesium 1.4 L Total Bilirubin AST ALT Alkaline Phosphatase C-Reactive Protein Total Protein Albumin Impressions: KUB X-Ray 05/12/18 00:00 IMPRESSION: NO RADIOGRAPHIC EVIDENCE FOR ACUTE ABDOMINAL DISEASE. Chest X-Ray 05/13/18 16:18 IMPRESSION: Trace left pleural effusion. No consolidation. Status: Imported from PACS Assessment & Plan - Diagnosis (1) Sepsis Is this a current diagnosis for this admission?: Yes Plan: As evidence by tachycardia, hypotension and fever - stemming from (+) c.diff Initial lactate 1.6, follow-up lactate in a.m. Vancomycin p.o. and Flagyl IV IVF resuscitation in emergency department, followed by maintenance IVF Stool cultures pending Blood cultures pending Urine cultures pending KUB benign Plan for CXR to evaluate for possible other infectious pathology (2) Diarrhea Qualifiers: Diarrhea type: presumed infectious Qualified Code(s): R19.7 - Diarrhea, unspecified Is this a current diagnosis for this admission?: Yes Plan: Secondary to C. difficile, Other possible etiologies gastroenteritis C. difficile PCR (+) POSITIVE Stool culture pending KUB benign IVF resuscitation in emergency department Continue maintenance IVF No leukocytosis. 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 Consulted VIDARREN GARCIA, Dr. Fleming, who states that appropriate treatment for this patient would be vancomycin 125 mg p.o. every 6 hours and IV flagyl 500mg q8hr. (3) Generalized weakness Is this a current diagnosis for this admission?: Yes Plan: Secondary to dehydration, diarrhea and poor nutritional intake IVF resuscitation with 2L NS in emergency department, required additional IVF boluses today for hypotension Continue maintenance IVF Encourage p.o. intake - clear liquid diet if tolerated Antiemetics as needed (4) HLD (hyperlipidemia) Is this a current diagnosis for this admission?: Yes Plan: History of HLD Will resume home dose statin - Time Time Spent with patient: 15-24 minutes Medications reviewed and adjusted accordingly: Yes Anticipated discharge: Home - Inpatient Certification Based on my medical assessment, after consideration of the patient's comorbidities, presenting symptoms, or acuity I expect that the services needed warrant INPATIENT care.: Yes I certify that my determination is in accordance with my understanding of Medicare's requirements for reasonable and necessary INPATIENT services [42 CFR 412.3e].: Yes Medical Necessity: Risk of Complication if Not Cared For in Hospital - Plan Summary Plan Summary: Continue oral and IV antibiotic coverage. Maintenance IV fluids. Bolus IVF if patient becomes hypotensive.
[2018-05-14] MEDS: NORMAL SALINE 1000 ML 1,000 ML IV PRN ×2 (00:31→11:29)
[2018-05-14] MEDS: VANCOMYCIN HCL INJ 500 MG VIAL PO SCH ×4 (03:11→21:16)
[2018-05-14] MEDS: METRONIDAZOLE 500 MG/NS RTU 500 MG/100 ML RTUPB IV SCH ×3 (05:31→22:24)
[2018-05-14 06:25] LABS: HEMATOCRIT 34.2 % (36.0-47.0); HEMOGLOBIN 11.7 g/dL (12.0-15.5); MEAN CORPUSCULAR HEMOGLOBIN 29.5 pg (27.0-33.4); MEAN CORPUSCULAR HGB CONC 34.1 g/dL (32.0-36.0); MEAN CORPUSCULAR VOLUME 87 fl (80-97); PLATELET COUNT 175 10^3/uL (150-450); RED BLOOD COUNT 3.95 10^6/uL (3.72-5.28); RED CELL DISTRIBUTION WIDTH 14.9 % (11.5-14.0); WHITE BLOOD COUNT 10.1 10^3/uL (4.0-10.5)
[2018-05-14 07:16] LABS: ABSOLUTE LYMPHOCYTES# (MANUAL) 0.4 10^3/uL (0.5-4.7); ABSOLUTE MONOCYTES # (MANUAL) 0.2 10^3/uL (0.1-1.4); ABSOLUTE NEUTROPHILS# (MANUAL) 9.1 10^3/uL (1.7-8.2); BAND NEUTROPHILS % (MANUAL) 1 % (3-5); BASOPHILS % (MANUAL) 0 % (0-2); EOSINOPHILS % (MANUAL) 4 % (0-6); LYMPHOCYTES % (MANUAL) 4 % (13-45); MONOCYTES % (MANUAL) 2 % (3-13); SEGMENTED NEUTROPHILS % (MAN) 89 % (42-78); TOTAL CELLS COUNTED 100
[2018-05-14 07:18] LABS: ANISOCYTOSIS 1+; POIKILOCYTOSIS 1+; TOXIC GRANULATION 1+; TOXIC VACUOLATION PRESENT
[2018-05-14 07:19] LABS: PLATELET COMMENT ADEQUATE
[2018-05-14 07:25] LABS: ALANINE AMINOTRANSFERASE 31 U/L (9-52); ALKALINE PHOSPHATASE 47 U/L (38-126); ANION GAP 7 (5-19); ASPARTATE AMINO TRANSFERASE 31 U/L (14-36); BILIRUBIN,DIRECT 0.3 mg/dL (0.0-0.4); BILIRUBIN,TOTAL 0.7 mg/dL (0.2-1.3); BLOOD UREA NITROGEN 17 mg/dL (7-20); CALCIUM 7.4 mg/dL (8.4-10.2); CARBON DIOXIDE 18 mmol/L (22-30); CHLORIDE 114 mmol/L (98-107); GLUCOSE 101 mg/dL (75-110); POTASSIUM 3.4 mmol/L (3.6-5.0); SODIUM 139.1 mmol/L (137-145); TOTAL PROTEIN 3.9 g/dL (6.3-8.2)
[2018-05-14 07:41] LABS: C-REACTIVE PROTEIN 259.9 mg/L (<10.0)
[2018-05-14] MEDS: LIDOCAINE 5% (700 MG) TRANSDERMAL ADH..PATCH TP SCH (11:29)
[2018-05-14] MEDS ORDERED: POTASSI CL 20 MEQ/50 ML RIDER 20 MEQ/50 ML RTUPB IV ONE (14:00)
[2018-05-14] MEDS: MAGNESIUM SULFATE/D5W 1 GM/100 ML RTUPB IV SCH ×2 (14:39→16:04)
[2018-05-14] MEDS: POTASSI CL 20 MEQ/D5NS 1L 20 MEQ/1,000 ML RTUINJ IV PRN (17:27)
--- NOTE | 2018-05-14 19:24 | PDOC PROGRESS REPORT ---
Subjective Progress Note for:: 05/14/18 Subjective:: 78 y.o. F admitted to [facility] for diarrhea and suspected C. difficile. Patient seen this morning on rounds, she is resting comfortably in bed. She states her abdomen is quite 'sore and weak.' Patient states she has been experiencing incontinent episodes of watery diarrhea. Upon assessment, the patient appears pale, dry tacky mucous membranes, lung sounds clear to auscultation, S1-S2, no murmur rubs or gallops, abdomen is diffusely tender to palpation, + bowel sounds. Plan to continue IV and PO antibiotics. Reason For Visit: DIARRHEA WEAKNESS Physical Exam Vital Signs: Temp Pulse Resp BP Pulse Ox 99.2 F 109 H 18 135/59 H 97 05/14/18 16:50 05/14/18 16:50 05/14/18 16:50 05/14/18 16:50 05/14/18 16:50 Intake & Output 05/13/18 05/14/18 05/15/18 06:59 06:59 06:59 Intake Total 2774 4837 1364 Output Total 375 475 300 Balance 2399 4362 1064 Weight 69.6 kg 71.6 kg General appearance: PRESENT: thin Head exam: PRESENT: atraumatic Eye exam: PRESENT: conjunctiva pale, PERRLA Mouth exam: PRESENT: moist Neck exam: PRESENT: full ROM Respiratory exam: PRESENT: clear to auscultation sebastien, symmetrical, unlabored Cardiovascular exam: PRESENT: +S1, +S2, tachycardia Pulses: PRESENT: normal radial pulses, normal dorsalis pedis pul Vascular exam: PRESENT: pallor GI/Abdominal exam: PRESENT: normal bowel sounds, soft. ABSENT: tenderness Rectal exam: PRESENT: deferred Extremities exam: PRESENT: full ROM. ABSENT: joint swelling Musculoskeletal exam: PRESENT: ambulatory, full ROM Neurological exam: PRESENT: alert, awake, oriented to person, oriented to place , oriented to time, oriented to situation Psychiatric exam: PRESENT: appropriate affect Skin exam: PRESENT: dry, intact, pallor Results Laboratory Results: 05/14/18 06:02 05/14/18 06:02 05/14/18 05/14/18 06:02 06:02 WBC 10.1 RBC 3.95 Hgb 11.7 L Hct 34.2 L MCV 87 MCH 29.5 MCHC 34.1 RDW 14.9 H Plt Count 175 Seg Neutrophils % Not Reportable Lymphocytes % Not Reportable Monocytes % Not Reportable Eosinophils % Not Reportable Basophils % Not Reportable Absolute Neutrophils Not Reportable Absolute Lymphocytes Not Reportable Absolute Monocytes Not Reportable Absolute Eosinophils Not Reportable Absolute Basophils Not Reportable Sodium 139.1 Potassium 3.4 L Chloride 114 H Carbon Dioxide 18 L Anion Gap 7 BUN 17 Creatinine 0.68 Est GFR ( Amer) > 60 Est GFR (Non-Af Amer) > 60 Glucose 101 Calcium 7.4 L Total Bilirubin 0.7 AST 31 ALT 31 Alkaline Phosphatase 47 C-Reactive Protein 259.9 H Total Protein 3.9 L Albumin 2.0 L 05/12/18 18:07 Stool - Stool - Final 05/12/18 14:34 Catheterized Urine Urine Culture - Final Lactobacillus (Vaginal Yennifer) Impressions: KUB X-Ray 05/12/18 00:00 IMPRESSION: NO RADIOGRAPHIC EVIDENCE FOR ACUTE ABDOMINAL DISEASE. Chest X-Ray 05/13/18 16:18 IMPRESSION: Trace left pleural effusion. No consolidation. Status: Imported from PACS Assessment & Plan - Diagnosis (1) Sepsis Is this a current diagnosis for this admission?: Yes Plan: As evidence by tachycardia, hypotension and fever - stemming from (+) c.diff Initial lactate 1.6, follow-up lactate in a.m. Vancomycin p.o. and Flagyl IV IVF resuscitation in emergency department, followed by maintenance IVF Stool cultures pending Blood cultures pending Urine cultures pending KUB benign Plan for CXR to evaluate for possible other infectious pathology (2) Diarrhea Qualifiers: Diarrhea type: presumed infectious Qualified Code(s): R19.7 - Diarrhea, unspecified Is this a current diagnosis for this admission?: Yes Plan: Secondary to C. difficile, Other possible etiologies gastroenteritis C. difficile PCR (+) POSITIVE Stool culture pending KUB benign IVF resuscitation in emergency department Continue maintenance IVF No leukocytosis. 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 Consulted VIDANT ID, Dr. Fleming, who states that appropriate treatment for this patient would be vancomycin 125 mg p.o. every 6 hours and IV flagyl 500mg q8hr. (3) Generalized weakness Is this a current diagnosis for this admission?: Yes Plan: Secondary to dehydration, diarrhea and poor nutritional intake IVF resuscitation with 2L NS in emergency department, required additional IVF boluses today for hypotension Continue maintenance IVF Encourage p.o. intake - clear liquid diet if tolerated Antiemetics as needed (4) HLD (hyperlipidemia) Is this a current diagnosis for this admission?: Yes Plan: History of HLD Will resume home dose statin (5) Depression (emotion) Is this a current diagnosis for this admission?: Yes Plan: Situational depression related to recently being placed in hospice care Patient made statement to daughter that she was hoping to No plan to harm herself Psych consulted - Time Time Spent with patient: 15-24 minutes Medications reviewed and adjusted accordingly: Yes Anticipated discharge: Home - Inpatient Certification Based on my medical assessment, after consideration of the patient's comorbidities, presenting symptoms, or acuity I expect that the services needed warrant INPATIENT care.: Yes I certify that my determination is in accordance with my understanding of Medicare's requirements for reasonable and necessary INPATIENT services [42 CFR 412.3e].: Yes Medical Necessity: Risk of Complication if Not Cared For in Hospital - Plan Summary Plan Summary: CONTINUE IVF. PO AND IV ANTIBIOTICS.
[2018-05-14] MEDS: ACETAMINOPHEN 1,000 MG/100 ML RTUPB IV PRN (21:15)
[2018-05-15] MEDS: POTASSI CL 20 MEQ/D5NS 1L 20 MEQ/1,000 ML RTUINJ IV PRN ×3 (02:41→23:48)
[2018-05-15] MEDS: VANCOMYCIN HCL INJ 500 MG VIAL PO SCH ×4 (02:41→21:09)
[2018-05-15] MEDS: ACETAMINOPHEN 1,000 MG/100 ML RTUPB IV PRN (04:07)
[2018-05-15] MEDS: METRONIDAZOLE 500 MG/NS RTU 500 MG/100 ML RTUPB IV SCH ×3 (05:51→21:09)
[2018-05-15 06:35] LABS: HEMATOCRIT 34.1 % (36.0-47.0); HEMOGLOBIN 11.5 g/dL (12.0-15.5); MEAN CORPUSCULAR HGB CONC 33.7 g/dL (32.0-36.0); MEAN CORPUSCULAR VOLUME 86 fl (80-97); PLATELET COUNT 236 10^3/uL (150-450); RED BLOOD COUNT 3.96 10^6/uL (3.72-5.28); RED CELL DISTRIBUTION WIDTH 14.8 % (11.5-14.0); WHITE BLOOD COUNT 12.9 10^3/uL (4.0-10.5)
[2018-05-15 06:51] LABS: ALANINE AMINOTRANSFERASE 29 U/L (9-52); ALBUMIN 1.8 g/dL (3.5-5.0); ALKALINE PHOSPHATASE 50 U/L (38-126); ANION GAP 8 (5-19); ASPARTATE AMINO TRANSFERASE 18 U/L (14-36); BILIRUBIN,DIRECT 0.2 mg/dL (0.0-0.4); BILIRUBIN,TOTAL 0.4 mg/dL (0.2-1.3); BLOOD UREA NITROGEN 13 mg/dL (7-20); CALCIUM 7.5 mg/dL (8.4-10.2); CARBON DIOXIDE 18 mmol/L (22-30); CHLORIDE 113 mmol/L (98-107); GLUCOSE 113 mg/dL (75-110); POTASSIUM 3.4 mmol/L (3.6-5.0); TOTAL PROTEIN 3.8 g/dL (6.3-8.2)
[2018-05-15 07:09] LABS: C-REACTIVE PROTEIN 164.6 mg/L (<10.0)
[2018-05-15 07:33] LABS: ABSOLUTE LYMPHOCYTES# (MANUAL) 0.6 10^3/uL (0.5-4.7); ABSOLUTE MONOCYTES # (MANUAL) 0.1 10^3/uL (0.1-1.4); ABSOLUTE NEUTROPHILS# (MANUAL) 11.1 10^3/uL (1.7-8.2); BAND NEUTROPHILS % (MANUAL) 6 % (3-5); BASOPHILS % (MANUAL) 0 % (0-2); EOSINOPHILS % (MANUAL) 8 % (0-6); LYMPHOCYTES % (MANUAL) 4 % (13-45); MONOCYTES % (MANUAL) 1 % (3-13); SEGMENTED NEUTROPHILS % (MAN) 80 % (42-78); TOTAL CELLS COUNTED 100; TOXIC GRANULATION SLIGHT
[2018-05-15 07:34] LABS: OVALOCYTES 1+; PLATELET COMMENT ADEQUATE; POIKILOCYTOSIS 1+; POLYCHROMASIA SLIGHT
[2018-05-15] MEDS: LIDOCAINE 5% (700 MG) TRANSDERMAL ADH..PATCH TP SCH (11:33)
[2018-05-15] MEDS ORDERED: POTASSI CL 20 MEQ/50 ML RIDER 20 MEQ/50 ML RTUPB IV ONE (13:00)
[2018-05-15] MEDS ORDERED: MAGNESIUM SULFATE/D5W 1 GM/100 ML RTUPB IV ONE (13:00)
--- NOTE | 2018-05-15 18:29 | Progress Note ---
Provider Note Provider Note: ID Consult Note Asked to review patient's chart. Pt not seen or examined. Reviewed provider notes, imaging reports, VS, lab results. Ms. Webster is an 78 year old woman who had an episode of Clostridium difficile infection (CDI ) earlier this month, which was reportedly treated with PO vancomycin with good response. However, her developed CDI after being treated with antibiotics for cellulitis, likely had been colonized by spores of C diff from the patient, and developed diarrhea from this. The patient subsequently developed diarrhea and abdominal pain, prompting presentation. She was noted on admission to have hypotension and dry mucous membranes. She had a KUB that showed no acute findings. Flagyl IV 500 q8h and PO vancomycin 125 mg QID were begun. 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 In this patient, there was no radiographic suggestion of ileus, but she did have hypotension initially. - Continue current treatment as long as patient appears to be improving; at least, based on chart review, this seems to be the case (hypotension has resolved, and number of loose stools documented decreasing over the past 2 days) . - After completing 14 days of treatment with QID PO vancomycin, the patient should continue a vancomycin tapered/pulsed regimen, of which there are different variations. Suggest the following tapered/pulsed schedule: Vancomycin 125 mg PO BID x 1 week, then vancomycin 125 mg daily PO x 1 week, then vancomycin 125 mg [id number] PO x 1 week, then vancomycin [id number] for another 3 weeks. Liang Callaway MD [facility] Infectious Diseases pager [phone]
--- NOTE | 2018-05-15 18:31 | PDOC PROGRESS REPORT ---
Subjective Progress Note for:: 05/15/18 Subjective:: 78 y.o. F admitted to [facility] for diarrhea and suspected C. difficile. Patient seen this morning on rounds, she is resting comfortably in bed. She states her abdomen is still 'sore' her pain is improving. Patient states she is still experiencing incontinent episodes of watery diarrhea (4-5 episodes per shift). The patient remains mildly tachycardic but her BP is within normal range. She is afebrile but her WBCs have increased slightly 9->12. Upon assessment, the patient appears pale, dry tacky mucous membranes, lung sounds clear to auscultation, S1-S2, no murmur rubs or gallops, + bowel sounds, abdomen is diffusely TTP. Her abdomen appears more distended today. Concerning for colitis, bowel perforation, or (less likely) toxic megacolon. Plan for CT abdomen/pelvis today. Reason For Visit: DIARRHEA WEAKNESS Physical Exam Vital Signs: Temp Pulse Resp BP Pulse Ox 98.3 F 106 H 16 145/72 H 97 05/15/18 16:08 05/15/18 16:08 05/15/18 16:08 05/15/18 16:08 05/15/18 16:08 Intake & Output 05/14/18 05/15/18 05/16/18 06:59 06:59 06:59 Intake Total 4837 3164 1237 Output Total 475 625 300 Balance 4362 1799 937 Weight 71.6 kg 73.3 kg General appearance: PRESENT: no acute distress, thin Head exam: PRESENT: atraumatic Eye exam: PRESENT: conjunctiva pale, PERRLA Mouth exam: PRESENT: moist, tongue midline Neck exam: PRESENT: full ROM Respiratory exam: PRESENT: clear to auscultation sebastien, symmetrical, unlabored Cardiovascular exam: PRESENT: +S1, +S2, tachycardia Pulses: PRESENT: normal radial pulses, normal dorsalis pedis pul GI/Abdominal exam: PRESENT: distended, normal bowel sounds, soft, tenderness Rectal exam: PRESENT: deferred Extremities exam: PRESENT: full ROM Musculoskeletal exam: PRESENT: ambulatory, full ROM Neurological exam: PRESENT: alert, awake, oriented to person, oriented to place , oriented to time, oriented to situation Skin exam: PRESENT: dry, pallor, warm Results Laboratory Results: 05/15/18 05:48 05/15/18 05:48 05/15/18 05/15/18 05:48 05:48 WBC 12.9 H RBC 3.96 Hgb 11.5 L Hct 34.1 L MCV 86 MCH 29.0 MCHC 33.7 RDW 14.8 H Plt Count 236 Seg Neutrophils % Not Reportable Lymphocytes % Not Reportable Monocytes % Not Reportable Eosinophils % Not Reportable Basophils % Not Reportable Absolute Neutrophils Not Reportable Absolute Lymphocytes Not Reportable Absolute Monocytes Not Reportable Absolute Eosinophils Not Reportable Absolute Basophils Not Reportable Sodium 139.0 Potassium 3.4 L Chloride 113 H Carbon Dioxide 18 L Anion Gap 8 BUN 13 Creatinine 0.53 Est GFR ( Amer) > 60 Est GFR (Non-Af Amer) > 60 Glucose 113 H Calcium 7.5 L Total Bilirubin 0.4 AST 18 ALT 29 Alkaline Phosphatase 50 C-Reactive Protein 164.6 H Total Protein 3.8 L Albumin 1.8 L 05/12/18 18:07 Stool - Stool - Final 05/12/18 18:07 Stool - Stool Stool Culture - Final Impressions: KUB X-Ray 05/12/18 00:00 IMPRESSION: NO RADIOGRAPHIC EVIDENCE FOR ACUTE ABDOMINAL DISEASE. Chest X-Ray 05/13/18 16:18 IMPRESSION: Trace left pleural effusion. No consolidation. Status: Imported from PACS Assessment & Plan - Diagnosis (1) Sepsis Is this a current diagnosis for this admission?: Yes Plan: As evidence by tachycardia, hypotension and fever - stemming from (+) c.diff Initial lactate 1.4 Stool cultures negative Blood cultures NGTD Urine cultures no growth KUB benign Vancomycin p.o. and Flagyl IV IVF resuscitation in emergency department, followed by maintenance IVF (2) Diarrhea Qualifiers: Diarrhea type: presumed infectious Qualified Code(s): R19.7 - Diarrhea, unspecified Is this a current diagnosis for this admission?: Yes Plan: Secondary to C. difficile C. difficile PCR (+) POSITIVE Stool culture (-) NEGATIVE KUB benign IVF resuscitation in emergency department Continue maintenance IVF Leukocytosis today (WBC 10.1->12.9). 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 Consulted JANETTE GARCIA, Dr. Fleming, who states that appropriate treatment for this patient would be vancomycin 125 mg p.o. every 6 hours and IV flagyl 500mg q8hr. (3) Generalized weakness Is this a current diagnosis for this admission?: Yes Plan: Secondary to dehydration, diarrhea and poor nutritional intake IVF resuscitation with 2L NS in emergency department, required additional IVF boluses today for hypotension Continue maintenance IVF Encourage p.o. intake - clear liquid diet if tolerated Antiemetics as needed (4) HLD (hyperlipidemia) Is this a current diagnosis for this admission?: Yes Plan: History of HLD When diarrhea subsides, resume home dose statin (5) Depression (emotion) Is this a current diagnosis for this admission?: Yes Plan: Situational depression related to recently being placed in hospice care Patient made statement to daughter that she was hoping to No plan to harm herself Psych consulted (6) Hypokalemia due to loss of potassium Is this a current diagnosis for this admission?: Yes Plan: related to GI loss and poor nutritional intake Continue D5NS with 20meq KCl Daily chemistries - Time Time Spent with patient: 15-24 minutes Medications reviewed and adjusted accordingly: Yes Anticipated discharge: Home - Inpatient Certification Based on my medical assessment, after consideration of the patient's comorbidities, presenting symptoms, or acuity I expect that the services needed warrant INPATIENT care.: Yes I certify that my determination is in accordance with my understanding of Medicare's requirements for reasonable and necessary INPATIENT services [42 CFR 412.3e].: Yes Medical Necessity: Need for IV Antibiotics, Risk of Complication if Not Cared For in Hospital - Plan Summary Plan Summary: CONTINUE IV AND PO ANTIBIOTICS. CT ABD/PELVIS TODAY
--- NOTE | 2018-05-15 18:53 | RADIOLOGY REPORT (SQ) ---
EXAM DESCRIPTION: CT ABD/PELVIS WITH IV ORAL COMPLETED DATE/TIME: 05/15/2018 6:09 pm REASON FOR STUDY: abdominal pain. +c.diff. COMPARISON: None. TECHNIQUE: CT scan of the abdomen and pelvis performed using helical scanning technique with dynamic intravenous contrast injection. Oral contrast. Images reviewed with lung, soft tissue, and bone win dows. Reconstructed coronal and sagittal MPR images reviewed. Delayed images for evaluation of the ur inary system also acquired. All images stored on PACS. All CT scanners at this facility use dose modulation, iterative reconstruction, and/or weight based d osing when appropriate to reduce radiation dose to as low as reasonably achievable (ALARA). [facility]: Dose Right [facility]: CareDose [facility]: Dose Right [facility]: Teradose 4D [facility]: Quartix CONTRAST TYPE AND DOSE: contrast/concentration: Isovue 370.00 mg/ml; Total Contrast Delivered: 80.0 ml; Total Saline Delivered: 43.0 ml RENAL FUNCTION: BUN 13 creatinine 0.53 RADIATION DOSE: CT Rad equipment meets quality standard of care and radiation dose reduction techniq ues were employed. CTDIvol: 14.3 - 17.1 mGy. DLP: 1812 mGy-cm.. LIMITATIONS: None. FINDINGS: LOWER CHEST: Small pleural effusions on each side with mild compressive atelectasis in the lower lobes, right more than left. LIVER: Normal size. No masses. No dilated ducts. SPLEEN: Normal size. No focal lesions. PANCREAS: No masses. No significant calcifications. No adjacent inflammation or peripancreatic fluid collections. Pancreatic duct not dilated. GALLBLADDER: Surgically absent. ADRENAL GLANDS: No significant masses or asymmetry. RIGHT KIDNEY AND URETER: No solid masses. No significant calcifications. No hydronephrosis or hyd roureter. LEFT KIDNEY AND URETER: No solid masses. No significant calcifications. No hydronephrosis or hydr oureter. AORTA AND VESSELS: No aneurysm. No dissection. Renal arteries, SMA, celiac without stenosis. RETROPERITONEUM: No retroperitoneal adenopathy, hemorrhage or masses. BOWEL AND PERITONEAL CAVITY: No bowel masses are seen. There is no bowel obstruction. Contrast is p resent in the colon. There is considerable ascites. APPENDIX: Surgically absent. PELVIS: No mass. No free fluid. Normal bladder. ABDOMINAL WALL: No masses. No hernias. BONES: No significant or acute findings. OTHER: No other significant finding. IMPRESSION: Small pleural effusions with compressive atelectasis in the lower lobes. Ascites. TECHNICAL DOCUMENTATION: JOB ID: [id number] Quality ID # [id number]: Final reports with documentation of one or more dose reduction techniques (e.g., Au tomated exposure control, adjustment of the mA and/or kV according to patient size, use of iterative reconstruction technique) 2010 [employer]- All Rights Reserved Reading location - IP/workstation name: [email or web address]
[2018-05-15] MEDS: PHARMACY COMMUNICATION ORDER MC SCH (23:47)
[2018-05-16] MEDS: VANCOMYCIN HCL INJ 500 MG VIAL PO SCH ×4 (03:35→21:14)
[2018-05-16] MEDS: METRONIDAZOLE 500 MG/NS RTU 500 MG/100 ML RTUPB IV SCH ×3 (05:49→21:14)
[2018-05-16 09:40] LABS: HEMATOCRIT 35.8 % (36.0-47.0); HEMOGLOBIN 11.8 g/dL (12.0-15.5); MEAN CORPUSCULAR HEMOGLOBIN 28.4 pg (27.0-33.4); MEAN CORPUSCULAR HGB CONC 32.9 g/dL (32.0-36.0); MEAN CORPUSCULAR VOLUME 87 fl (80-97); PLATELET COUNT 311 10^3/uL (150-450); RED BLOOD COUNT 4.13 10^6/uL (3.72-5.28); RED CELL DISTRIBUTION WIDTH 15.4 % (11.5-14.0); WHITE BLOOD COUNT 13.9 10^3/uL (4.0-10.5)
[2018-05-16 09:53] LABS: ALANINE AMINOTRANSFERASE 27 U/L (9-52); ALKALINE PHOSPHATASE 57 U/L (38-126); ANION GAP 8 (5-19); ASPARTATE AMINO TRANSFERASE 18 U/L (14-36); BILIRUBIN,DIRECT 0.2 mg/dL (0.0-0.4); BILIRUBIN,TOTAL 0.4 mg/dL (0.2-1.3); BLOOD UREA NITROGEN 8 mg/dL (7-20); CALCIUM 7.9 mg/dL (8.4-10.2); CARBON DIOXIDE 21 mmol/L (22-30); CHLORIDE 110 mmol/L (98-107); GLUCOSE 114 mg/dL (75-110); POTASSIUM 3.4 mmol/L (3.6-5.0); TOTAL PROTEIN 3.9 g/dL (6.3-8.2)
[2018-05-16] MEDS: POTASSI CL 20 MEQ/D5NS 1L 20 MEQ/1,000 ML RTUINJ IV PRN ×2 (10:18→22:11)
[2018-05-16] MEDS: LIDOCAINE 5% (700 MG) TRANSDERMAL ADH..PATCH TP SCH (10:21)
[2018-05-16 10:25] LABS: ABSOLUTE LYMPHOCYTES# (MANUAL) 0.6 10^3/uL (0.5-4.7); ABSOLUTE NEUTROPHILS# (MANUAL) 10.4 10^3/uL (1.7-8.2); ANISOCYTOSIS SLIGHT; BAND NEUTROPHILS % (MANUAL) 1 % (3-5); BASOPHILS % (MANUAL) 0 % (0-2); EOSINOPHILS % (MANUAL) 14 % (0-6); LYMPHOCYTES % (MANUAL) 3 % (13-45); MONOCYTES % (MANUAL) 7 % (3-13); OVALOCYTES 1+; PLATELET COMMENT ADEQUATE; POIKILOCYTOSIS 1+; SEGMENTED NEUTROPHILS % (MAN) 74 % (42-78); TEAR DROP CELLS SLIGHT; TOTAL CELLS COUNTED 100; TOXIC GRANULATION 2+; TOXIC VACUOLATION PRESENT
[2018-05-16 10:26] LABS: SCHISTOCYTES SLIGHT
--- NOTE | 2018-05-16 18:11 | PDOC PROGRESS REPORT ---
Subjective Progress Note for:: 05/16/18 Subjective:: The patient is an 78-year-old female with a past medical history of hyperlipidemia, C. difficile, and arthritis who was admitted on 05/12/18 with sepsis secondary to recurrent C. difficile infection. The patient was seen on morning rounds today. She was found resting in bed comfortably on room air eating her lunch. The patient reports that she continues to have small, loose, bowel movements with any p.o. intake including small sips of water. She reports that she has noted a decrease in the volume but not the frequency of her bowel movements. She continues to have generalized abdominal pain and bloating. She denies nausea and vomiting. She denies fever, chills, body aches, chest pain, palpitations, dyspnea and cough. She does discuss with me briefly the recent of her ( within the last 1-2 days). Nursing requests a physical therapy evaluation but otherwise has no questions or concerns. Reason For Visit: DIARRHEA WEAKNESS Physical Exam Vital Signs: Temp Pulse Resp BP Pulse Ox 98.2 F 107 H 20 137/65 H 96 05/16/18 07:42 05/16/18 14:00 05/16/18 07:42 05/16/18 07:42 05/16/18 07:42 Intake & Output 05/15/18 05/16/18 05/17/18 06:59 06:59 06:59 Intake Total 3164 2697 1422 Output Total 625 1100 100 Balance 2539 1597 1322 Weight 73.3 kg 76.4 kg General appearance: PRESENT: no acute distress, cooperative, well-developed, well-nourished, other - Overweight Head exam: PRESENT: atraumatic, normocephalic Eye exam: PRESENT: conjunctiva pink, EOMI, PERRLA. ABSENT: scleral icterus Mouth exam: PRESENT: moist, tongue midline Neck exam: ABSENT: carotid bruit, JVD, lymphadenopathy, thyromegaly Respiratory exam: PRESENT: clear to auscultation sebastien, symmetrical, unlabored. ABSENT: rales, rhonchi, wheezes Cardiovascular exam: PRESENT: RRR. ABSENT: diastolic murmur, rubs, systolic murmur Pulses: PRESENT: normal dorsalis pedis pul Vascular exam: PRESENT: normal capillary refill GI/Abdominal exam: PRESENT: distended, firm, hyperactive bowel sounds, tenderness. ABSENT: guarding, mass, organolmegaly, rebound Rectal exam: PRESENT: deferred Extremities exam: PRESENT: full ROM. ABSENT: calf tenderness, clubbing, pedal edema Neurological exam: PRESENT: alert, awake, oriented to person, oriented to place , oriented to time, oriented to situation, CN II-XII grossly intact. ABSENT: motor sensory deficit Psychiatric exam: PRESENT: appropriate affect, normal mood - Understandably tearful/grieving. ABSENT: homicidal ideation, suicidal ideation Skin exam: PRESENT: dry, intact, warm. ABSENT: cyanosis, rash Results Laboratory Results: 05/16/18 09:15 05/16/18 09:15 05/16/18 05/16/18 05/16/18 05:48 09:15 09:15 WBC 13.9 H RBC 4.13 Hgb 11.8 L Hct 35.8 L MCV 87 MCH 28.4 MCHC 32.9 RDW 15.4 H Plt Count 311 Seg Neutrophils % Not Reportable Lymphocytes % Not Reportable Monocytes % Not Reportable Eosinophils % Not Reportable Basophils % Not Reportable Absolute Neutrophils Not Reportable Absolute Lymphocytes Not Reportable Absolute Monocytes Not Reportable Absolute Eosinophils Not Reportable Absolute Basophils Not Reportable Sodium 139.0 Potassium 3.4 L Chloride 110 H Carbon Dioxide 21 L Anion Gap 8 BUN 8 Creatinine 0.52 Est GFR ( Amer) > 60 Est GFR (Non-Af Amer) > 60 Glucose 114 H Calcium 7.9 L Magnesium 1.9 Total Bilirubin 0.4 AST 18 ALT 27 Alkaline Phosphatase 57 C-Reactive Protein 58.7 H Total Protein 3.9 L Albumin 2.0 L 05/12/18 18:07 Stool - Stool - Final 05/12/18 18:07 Stool - Stool Stool Culture - Final Impressions: KUB X-Ray 05/12/18 00:00 IMPRESSION: NO RADIOGRAPHIC EVIDENCE FOR ACUTE ABDOMINAL DISEASE. Chest X-Ray 05/13/18 16:18 IMPRESSION: Trace left pleural effusion. No consolidation. Abdomen/Pelvis CT 05/15/18 12:39 IMPRESSION: Small pleural effusions with compressive atelectasis in the lower lobes. Ascites. Assessment & Plan - Diagnosis (1) Sepsis Is this a current diagnosis for this admission?: Yes Plan: Improved; patient was admitted with tachycardia, hypotension, and fever secondary to c. diff infection. Now with leukocytosis (WBCs 13k). Stool cultures negative Blood cultures no growth to date Urine cultures lactobacillus Infectious disease was consulted; appreciate Dr. Callaway's evaluation and recommendations. We will continue IV metronidazole and p.o. vancomycin. (2) Diarrhea Qualifiers: Diarrhea type: presumed infectious Qualified Code(s): R19.7 - Diarrhea, unspecified Is this a current diagnosis for this admission?: Yes Plan: Secondary to recurrent C. difficile infection. C. difficile PCR is positive Stool culture negative KUB was benign Follow-up CT of the abdomen and pelvis yesterday revealed small pleural effusions with compressive atelectasis in the lower lobes and ascites; no bowel obstruction, bowel masses, or toxic megacolon noted. We will continue maintenance IV fluids. Continue p.o. vancomycin and IV metronidazole. Diet as tolerated with antiemetics as needed. (3) Depression (emotion) Is this a current diagnosis for this admission?: Yes Plan: Situational depression related to recent of . Psychiatry has been consulted; evaluation is pending. Briefly discussed her grieving with me today; appeared appropriate. Denied SI/ HI. Patient declines antidepressants and antianxiety medications. She was encouraged to discuss her feelings with family, friends, staff members. (4) Generalized weakness Is this a current diagnosis for this admission?: Yes Plan: Secondary to dehydration, diarrhea, poor nutritional intake. We will continue maintenance IV fluids. Patient's diet has been advanced; antiemetics as needed. PT/OT evaluations. Fall precautions. (5) HLD (hyperlipidemia) Is this a current diagnosis for this admission?: Yes Plan: Dose statin on hold while acutely ill; will resume once diarrhea subsides. (6) Hypokalemia due to loss of potassium Is this a current diagnosis for this admission?: Yes Plan: Secondary to GI loss and poor nutritional intake. We will continue D5NS with 20 mEq KCl. We will monitor with daily chemistries. (7) Ascites Qualifiers: Ascites type: other type Qualified Code(s): R18.8 - Other ascites Is this a current diagnosis for this admission?: Yes Plan: Patient is noted to have diffusely tender abdominal discomfort with palpation and distention. CT of the abdomen and pelvis revealed large ascites. Patient denies history of CHF; no previous echocardiogram or proBNP is on file. She denies history of liver disease; chemistries appropriate other than low albumin (2.0). Ascites is likely secondary to C. difficile infection. Protein-losing enteropathy with hypoalbuminemia has been associated with C. difficile infection in the absence of fulminant colitis. We will check proBNP with a.m. labs. We will continue to treat C. difficile infection as outlined above. - Time Time Spent with patient: 25-34 minutes Medications reviewed and adjusted accordingly: Yes Anticipated discharge: Acute Rehab
[2018-05-17] MEDS: PHARMACY COMMUNICATION ORDER MC SCH ×2 (02:05→22:08)
[2018-05-17] MEDS: VANCOMYCIN HCL INJ 500 MG VIAL PO SCH ×4 (04:04→22:08)
[2018-05-17] MEDS: METRONIDAZOLE 500 MG/NS RTU 500 MG/100 ML RTUPB IV SCH ×3 (05:40→22:08)
[2018-05-17 05:54] LABS: HEMATOCRIT 33.1 % (36.0-47.0); MEAN CORPUSCULAR HEMOGLOBIN 28.6 pg (27.0-33.4); MEAN CORPUSCULAR HGB CONC 33.3 g/dL (32.0-36.0); MEAN CORPUSCULAR VOLUME 86 fl (80-97); PLATELET COUNT 317 10^3/uL (150-450); RED BLOOD COUNT 3.86 10^6/uL (3.72-5.28); RED CELL DISTRIBUTION WIDTH 15.3 % (11.5-14.0); WHITE BLOOD COUNT 14.9 10^3/uL (4.0-10.5)
[2018-05-17 06:16] LABS: ANION GAP 7 (5-19); BLOOD UREA NITROGEN 7 mg/dL (7-20); CALCIUM 7.9 mg/dL (8.4-10.2); CARBON DIOXIDE 21 mmol/L (22-30); CHLORIDE 111 mmol/L (98-107); GLUCOSE 95 mg/dL (75-110); POTASSIUM 3.6 mmol/L (3.6-5.0); SODIUM 138.8 mmol/L (137-145)
[2018-05-17] MEDS: LIDOCAINE 5% (700 MG) TRANSDERMAL ADH..PATCH TP SCH (11:11)
--- NOTE | 2018-05-17 17:59 | PDOC PROGRESS REPORT ---
Subjective Progress Note for:: 05/17/18 Subjective:: The patient is an 78-year-old female with a past medical history of hyperlipidemia, C. difficile, and arthritis who was admitted on 05/12/18 with sepsis secondary to recurrent C. difficile infection. The patient was seen on afternoon rounds today. She was found resting in bed comfortably on room air. She reports that she is feeling better today. Both the patient and nursing report a decreased in volume and frequency of stools today. The patient has happy to report that she ate her lunch approximately 2 hours ago and has not yet had a bowel movement. She is passing gas without stool leakage. She does continue to endorse abdominal bloating and mild discomfort, however, this is also improved today. She denies nausea or vomiting. She denies fever, chills, body aches, chest pain, palpitations, dyspnea and cough. She again discusses the recent of her ( only a few days ago; arrangements are pending). The patient appears to be concerned about the appropriateness of her grief. She is bewildered that she is not crying and is at peace with his . She feels that she is somehow letting her family/children down by not being more demonstrative of her loss. She is reassured that grief is felt and expressed differently and that staff do not find her current emotional reaction to be questionable/objectionable. Nursing has no questions or concerns today. Reason For Visit: DIARRHEA WEAKNESS Physical Exam Vital Signs: Temp Pulse Resp BP Pulse Ox 98.9 F 104 H 16 148/65 H 97 05/17/18 14:53 05/17/18 14:53 05/17/18 14:53 05/17/18 14:53 05/17/18 14:53 Intake & Output 05/16/18 05/17/18 05/18/18 06:59 06:59 06:59 Intake Total 2697 3259 525 Output Total 1100 650 900 Balance 1597 2609 -375 Weight 76.4 kg 76.7 kg General appearance: PRESENT: no acute distress, cooperative, well-developed, well-nourished, other - Overweight Head exam: PRESENT: atraumatic, normocephalic Eye exam: PRESENT: conjunctiva pink, EOMI, PERRLA. ABSENT: scleral icterus Ear exam: PRESENT: normal external ear exam Mouth exam: PRESENT: moist, tongue midline Neck exam: ABSENT: carotid bruit, JVD, lymphadenopathy, thyromegaly Respiratory exam: PRESENT: clear to auscultation sebastien, symmetrical, unlabored. ABSENT: rales, rhonchi, wheezes Cardiovascular exam: PRESENT: RRR, +S1, +S2. ABSENT: diastolic murmur, rubs, systolic murmur Pulses: PRESENT: normal dorsalis pedis pul Vascular exam: PRESENT: normal capillary refill GI/Abdominal exam: PRESENT: distended, hyperactive bowel sounds, soft, tenderness. ABSENT: guarding, mass, organolmegaly, rebound Rectal exam: PRESENT: deferred Extremities exam: PRESENT: full ROM. ABSENT: calf tenderness, clubbing, pedal edema Neurological exam: PRESENT: alert, awake, oriented to person, oriented to place , oriented to time, oriented to situation, CN II-XII grossly intact. ABSENT: motor sensory deficit Psychiatric exam: PRESENT: appropriate affect, normal mood - Appropriately tearful/greiving. ABSENT: homicidal ideation, suicidal ideation Skin exam: PRESENT: dry, intact, warm. ABSENT: cyanosis, rash Results Laboratory Results: 05/17/18 05:15 05/17/18 05:15 05/17/18 05/17/18 05:15 05:15 WBC 14.9 H RBC 3.86 Hgb 11.0 L Hct 33.1 L MCV 86 MCH 28.6 MCHC 33.3 RDW 15.3 H Plt Count 317 Sodium 138.8 Potassium 3.6 Chloride 111 H Carbon Dioxide 21 L Anion Gap 7 BUN 7 Creatinine 0.48 L Est GFR ( Amer) > 60 Est GFR (Non-Af Amer) > 60 Glucose 95 Calcium 7.9 L 05/12/18 15:02 Blood Blood Culture - Final NO GROWTH IN 5 DAYS 05/17/18 05:15 NT-Pro-B Natriuret Pep 416 Impressions: KUB X-Ray 05/12/18 00:00 IMPRESSION: NO RADIOGRAPHIC EVIDENCE FOR ACUTE ABDOMINAL DISEASE. Chest X-Ray 05/13/18 16:18 IMPRESSION: Trace left pleural effusion. No consolidation. Abdomen/Pelvis CT 05/15/18 12:39 IMPRESSION: Small pleural effusions with compressive atelectasis in the lower lobes. Ascites. Assessment & Plan - Diagnosis (1) Sepsis Is this a current diagnosis for this admission?: Yes Plan: Improved; patient was admitted with tachycardia, hypotension, and fever secondary to c. diff infection. Now with leukocytosis (WBCs 14k). Patient has been afebrile >48 hours, continues to have mild tachycardia (104), now NORMOtensive. Stool cultures negative Blood cultures no growth to date Urine cultures lactobacillus Infectious disease was consulted; appreciate Dr. Callaway's evaluation and recommendations. We will continue IV metronidazole and p.o. vancomycin. The patient received adequate IV fluid rehydration; now slight peripheral edema. She has had adequate p.o. intake today. Will d/c maintenance IV fluids. (2) Diarrhea Qualifiers: Diarrhea type: presumed infectious Qualified Code(s): R19.7 - Diarrhea, unspecified Is this a current diagnosis for this admission?: Yes Plan: Improved; reduced volume and frequency of stools per nursing and patient today. Secondary to recurrent C. difficile infection. C. difficile PCR is positive Stool culture negative KUB was benign Follow-up CT of the abdomen and pelvis yesterday revealed small pleural effusions with compressive atelectasis in the lower lobes and ascites; no bowel obstruction, bowel masses, or toxic megacolon noted. Continue p.o. vancomycin and IV metronidazole. Diet as tolerated with antiemetics as needed. (3) Depression (emotion) Is this a current diagnosis for this admission?: Yes Plan: Situational depression related to recent of . Psychiatry has been consulted; evaluation is pending. Nursing reports that psychiatry did evaluate the patient today, however, at time of dictation the report is not yet available. Briefly discussed her grieving with me today; appeared appropriate. Will initiate low dose trazadone qHS; will adjust medications once psychiatry notes are available. She was encouraged to discuss her feelings with family, friends, staff members. (4) Generalized weakness Is this a current diagnosis for this admission?: Yes Plan: Secondary to dehydration, diarrhea, poor nutritional intake. Patient's diet has been advanced; antiemetics as needed. PT/OT evaluations. Fall precautions. (5) HLD (hyperlipidemia) Is this a current diagnosis for this admission?: Yes Plan: Dose statin on hold while acutely ill; will resume once diarrhea subsides. (6) Hypokalemia due to loss of potassium Is this a current diagnosis for this admission?: Yes Plan: Replete. Secondary to GI loss and poor nutritional intake. Now tolerating adequate p.o. intake. We will monitor with daily chemistries. (7) Ascites Qualifiers: Ascites type: other type Qualified Code(s): R18.8 - Other ascites Is this a current diagnosis for this admission?: Yes Plan: Patient is noted to have diffusely tender abdominal discomfort with palpation and distention. Tenderness is improved today. The patient remains distended, although not as firm as yesterday. ProBNP today is 416. CT of the abdomen and pelvis revealed large ascites. Patient denies history of CHF; no previous echocardiogram or proBNP is on file. She denies history of liver disease; chemistries appropriate other than low albumin (2.0). Ascites is likely secondary to C. difficile infection. Protein-losing enteropathy with hypoalbuminemia has been associated with C. difficile infection in the absence of fulminant colitis. We will continue to treat C. difficile infection as outlined above. - Time Time Spent with patient: 25-34 minutes Medications reviewed and adjusted accordingly: Yes Anticipated discharge: Acute Rehab
[2018-05-17] MEDS: TRAZODONE HCL 50 MG TABLET PO SCH (22:08)
[2018-05-18] MEDS: VANCOMYCIN HCL INJ 500 MG VIAL PO SCH ×4 (02:41→23:20)
[2018-05-18] MEDS: METRONIDAZOLE 500 MG/NS RTU 500 MG/100 ML RTUPB IV SCH ×3 (05:16→21:27)
[2018-05-18 05:32] LABS: HEMATOCRIT 29.8 % (36.0-47.0); MEAN CORPUSCULAR HGB CONC 33.5 g/dL (32.0-36.0); MEAN CORPUSCULAR VOLUME 86 fl (80-97); PLATELET COUNT 320 10^3/uL (150-450); RED BLOOD COUNT 3.45 10^6/uL (3.72-5.28); RED CELL DISTRIBUTION WIDTH 15.5 % (11.5-14.0); WHITE BLOOD COUNT 10.6 10^3/uL (4.0-10.5)
[2018-05-18 06:03] LABS: ANION GAP 6 (5-19); BLOOD UREA NITROGEN 9 mg/dL (7-20); C-REACTIVE PROTEIN 25.1 mg/L (<10.0); CALCIUM 7.9 mg/dL (8.4-10.2); CARBON DIOXIDE 25 mmol/L (22-30); CHLORIDE 107 mmol/L (98-107); GLUCOSE 86 mg/dL (75-110); POTASSIUM 3.6 mmol/L (3.6-5.0); SODIUM 138.4 mmol/L (137-145)
[2018-05-18] MEDS: MULTIVITAMIN TABLET PO SCH (09:48)
[2018-05-18] MEDS ORDERED: (PENDING PHARMACY ID) (Multivit/Folic Acid/Vit K1 [One-A-Day Women's 50 Plus Tab] 1 EACH) PO SCH (10:00)
[2018-05-18] MEDS: LIDOCAINE 5% (700 MG) TRANSDERMAL ADH..PATCH TP SCH (10:09)
--- NOTE | 2018-05-18 18:58 | PDOC PROGRESS REPORT ---
Subjective Progress Note for:: 05/18/18 Subjective:: The patient is an 78-year-old female with a past medical history of hyperlipidemia, C. difficile, and arthritis who was admitted on 05/12/18 with sepsis secondary to recurrent C. difficile infection. The patient was seen on afternoon rounds today with family members present. She was found resting in bed comfortably on room air. She states that she is feeling better today, however continues to complain of abdominal discomfort, distention, and frequent watery bowel movements. She reports that she has had 8-10 bowel movements today. She states that she is embarrassed to report her stools and so has not been asking staff for assistance ; she reports that she generally waits every third stool before asking nursing for assistance. We had a long discussion with regard to importance of asking for assistance immediately so that she does not develop skin breakdown or urinary tract infection. She does report a slight increase in her appetite today and does confirm that generally she has a period of 1-2 hours after meals prior to her first stool which is a significant improvement from yesterday and previously. She denies fever, chills, body aches, chest pain, palpitations, dyspnea, orthopnea, nausea and vomiting. She briefly discussed that her 's is scheduled for Tuesday. An offer was made to make arrangements for her to be able to attend, however, she states that she would not wish to expose her family members, many of whom are elderly, to C. difficile. She seems at peace with her decision not to attend services. She has no other questions or concerns today. Nursing has no questions or concerns today. Reason For Visit: DIARRHEA WEAKNESS Physical Exam Vital Signs: Temp Pulse Resp BP Pulse Ox 98.3 F 103 H 20 150/57 H 97 05/18/18 08:03 05/18/18 14:00 05/18/18 08:03 05/18/18 08:03 05/18/18 08:03 Intake & Output 05/17/18 05/18/18 05/19/18 06:59 06:59 06:59 Intake Total 3259 925 100 Output Total 650 1575 Balance 2609 -650 100 Weight 76.7 kg 76.7 kg General appearance: PRESENT: no acute distress, well-developed, well-nourished, other - Overweight Head exam: PRESENT: atraumatic, normocephalic Eye exam: PRESENT: conjunctiva pink, EOMI, PERRLA. ABSENT: scleral icterus Ear exam: PRESENT: normal external ear exam Mouth exam: PRESENT: moist, tongue midline Neck exam: ABSENT: carotid bruit, JVD, lymphadenopathy, thyromegaly Respiratory exam: PRESENT: clear to auscultation sebastien. ABSENT: rales, rhonchi, wheezes Cardiovascular exam: PRESENT: RRR. ABSENT: diastolic murmur, rubs, systolic murmur Pulses: PRESENT: normal dorsalis pedis pul Vascular exam: PRESENT: normal capillary refill GI/Abdominal exam: PRESENT: distended, hypoactive bowel sounds, soft, tenderness. ABSENT: guarding, mass, organolmegaly, rebound Rectal exam: PRESENT: deferred Extremities exam: PRESENT: full ROM. ABSENT: calf tenderness, clubbing, pedal edema Neurological exam: PRESENT: alert, awake, oriented to person, oriented to place , oriented to time, oriented to situation, CN II-XII grossly intact. ABSENT: motor sensory deficit Psychiatric exam: PRESENT: appropriate affect, normal mood. ABSENT: homicidal ideation, suicidal ideation Skin exam: PRESENT: dry, intact, warm. ABSENT: cyanosis, rash Results Laboratory Results: 05/18/18 04:33 05/18/18 04:33 05/18/18 05/18/18 04:33 04:33 WBC 10.6 H RBC 3.45 L Hgb 10.0 L Hct 29.8 L MCV 86 MCH 29.0 MCHC 33.5 RDW 15.5 H Plt Count 320 Sodium 138.4 Potassium 3.6 Chloride 107 Carbon Dioxide 25 Anion Gap 6 BUN 9 Creatinine 0.49 L Est GFR ( Amer) > 60 Est GFR (Non-Af Amer) > 60 Glucose 86 Calcium 7.9 L C-Reactive Protein 25.1 H 05/12/18 15:02 Blood Blood Culture - Final NO GROWTH IN 5 DAYS 05/17/18 05:15 NT-Pro-B Natriuret Pep 416 Impressions: KUB X-Ray 05/12/18 00:00 IMPRESSION: NO RADIOGRAPHIC EVIDENCE FOR ACUTE ABDOMINAL DISEASE. Chest X-Ray 05/13/18 16:18 IMPRESSION: Trace left pleural effusion. No consolidation. Abdomen/Pelvis CT 05/15/18 12:39 IMPRESSION: Small pleural effusions with compressive atelectasis in the lower lobes. Ascites. Assessment & Plan - Diagnosis (1) Sepsis Is this a current diagnosis for this admission?: Yes Plan: Improved; patient was admitted with tachycardia, hypotension, and fever secondary to c. diff infection. Leukocytosis trending down (WBCs 10k). Patient has been afebrile >48 hours, continues to have mild tachycardia (104), now NORMOtensive. Stool cultures negative Blood cultures no growth to date Urine cultures lactobacillus CRP trending down; 25.1. Infectious disease was consulted; appreciate Dr. Callaway's evaluation and recommendations. We will continue IV metronidazole and p.o. vancomycin. The patient received adequate IV fluid rehydration; now slight peripheral edema. She has had adequate p.o. intake today. Will d/c maintenance IV fluids. (2) Diarrhea Qualifiers: Diarrhea type: presumed infectious Qualified Code(s): R19.7 - Diarrhea, unspecified Is this a current diagnosis for this admission?: Yes Plan: Improved; reduced volume of stools per nursing and patient today. Secondary to recurrent C. difficile infection. C. difficile PCR is positive Stool culture negative KUB was benign Follow-up CT of the abdomen and pelvis revealed small pleural effusions with compressive atelectasis in the lower lobes and ascites; no bowel obstruction, bowel masses, or toxic megacolon noted. Continue p.o. vancomycin and IV metronidazole. Have added p.o. lactobacillus. Diet as tolerated with antiemetics as needed. (3) Depression (emotion) Is this a current diagnosis for this admission?: Yes Plan: Situational depression related to recent of . Psychiatry has been consulted; evaluation is pending. Nursing reports that psychiatry did evaluate the patient today, however, at time of dictation the report is not yet available. Briefly discussed her grieving with me today; appeared appropriate. Continue low dose trazadone qHS. Discussed with psychiatry today; recommended that if trazodone failed to consider BuSpar. No other medication recommendations at this time. She was encouraged to discuss her feelings with family, friends, staff members. (4) Generalized weakness Is this a current diagnosis for this admission?: Yes Plan: Secondary to dehydration, diarrhea, poor nutritional intake. Patient's diet has been advanced; antiemetics as needed. PT/OT evaluations. Fall precautions. (5) HLD (hyperlipidemia) Is this a current diagnosis for this admission?: Yes Plan: Dose statin on hold while acutely ill; will resume once diarrhea subsides. (6) Hypokalemia due to loss of potassium Is this a current diagnosis for this admission?: Yes Plan: Replete. Secondary to GI loss and poor nutritional intake. Now tolerating adequate p.o. intake. We will monitor with daily chemistries. (7) Ascites Qualifiers: Ascites type: other type Qualified Code(s): R18.8 - Other ascites Is this a current diagnosis for this admission?: Yes Plan: Patient is noted to have diffusely tender abdominal discomfort with palpation and distention. Tenderness and distention continued to improve. ProBNP 416. CT of the abdomen and pelvis revealed large ascites. Patient denies history of CHF; no previous echocardiogram or proBNP is on file. She denies history of liver disease; chemistries appropriate other than low albumin (2.0). Ascites is likely secondary to C. difficile infection. Protein-losing enteropathy with hypoalbuminemia has been associated with C. difficile infection in the absence of fulminant colitis. We will continue to treat C. difficile infection as outlined above. - Time Time Spent with patient: 25-34 minutes Medications reviewed and adjusted accordingly: Yes Anticipated discharge: Other - Acute rehab versus home with home health.
[2018-05-18] MEDS: LACTOBACILLUS ACIDOPHILUS 250 MG TAB PO SCH (21:27)
[2018-05-18] MEDS: TRAZODONE HCL 50 MG TABLET PO SCH (21:27)
[2018-05-18] MEDS: PHARMACY COMMUNICATION ORDER MC SCH (22:15)
[2018-05-19] MEDS: VANCOMYCIN HCL INJ 500 MG VIAL PO SCH ×3 (05:22→17:24)
[2018-05-19] MEDS: METRONIDAZOLE 500 MG/NS RTU 500 MG/100 ML RTUPB IV SCH (05:22)
[2018-05-19 05:42] LABS: HEMATOCRIT 29.6 % (36.0-47.0); MEAN CORPUSCULAR HEMOGLOBIN 29.1 pg (27.0-33.4); MEAN CORPUSCULAR HGB CONC 33.7 g/dL (32.0-36.0); MEAN CORPUSCULAR VOLUME 86 fl (80-97); PLATELET COUNT 351 10^3/uL (150-450); RED BLOOD COUNT 3.43 10^6/uL (3.72-5.28); RED CELL DISTRIBUTION WIDTH 15.2 % (11.5-14.0); WHITE BLOOD COUNT 10.6 10^3/uL (4.0-10.5)
[2018-05-19] MEDS: MULTIVITAMIN TABLET PO SCH (11:32)
[2018-05-19] MEDS: LACTOBACILLUS ACIDOPHILUS 250 MG TAB PO SCH (11:32)
[2018-05-19] MEDS: LIDOCAINE 5% (700 MG) TRANSDERMAL ADH..PATCH TP SCH (11:33)
--- NOTE | 2018-05-19 12:25 | PDOC TRANSFER SUMMARY ---
General - Admit/Disc Date/PCP Admission Date/Primary Care Provider: 05/12/18 12:55 FABRICIO MEDEIROS MD Discharge Date: 05/19/18 - Discharge Diagnosis (1) Sepsis Is this a current diagnosis for this admission?: Yes Summary: Resolved. The patient was admitted with tachycardia, hypotension, and fever secondary to C. difficile infection. Initially WBCs were normal, did peak at 14.9, and now trending down; 10.6 today. The patient has been afebrile for > 48 hours, tachycardia and hypotension have resolved. Stool is positive for C. difficile, otherwise stool cultures negative. Blood cultures have no growth today. Urine culture positive for lactobacillus only. CRP is trending down; most recently 25.1. (2) Diarrhea Is this a current diagnosis for this admission?: Yes Summary: Improved. The patient is currently incontinent of stool. Per nursing, the patient is having 6-7 small, semi-formed stools daily. Secondary to severe C. difficile colitis infection; relapse #1. CT of the abdomen and pelvis revealed small pleural effusions with compressive atelectasis in the lower lobes; no bowel obstruction, bowel masses, or toxic megacolon noted. Pt was initially placed on IV metronidazole and p.o. vancomycin. Infectious disease was consulted; recommend pulse dosing/taper of p.o. vancomycin. The patient is discharge with prescriptions for p.o. vancomycin taper, p.o. meronidazole to finish her 10 day course of therapy, and lactobacillus. Recommend avoiding Imodium or other antidiarrheals. (3) Depression (emotion) Is this a current diagnosis for this admission?: Yes Summary: Situational depression and grief related to the recent of her ( The patient's 05/15/2018). Psychiatry was consulted. Recommend sleep aid. The patient was started on low-dose trazodone with good effect. She is provided a prescription for trazodone 50 mg nightly #30. (4) Generalized weakness Is this a current diagnosis for this admission?: Yes Summary: Improved; patient participated with PT/OT. She is discharged to SNF for short-term rehab. (5) HLD (hyperlipidemia) Is this a current diagnosis for this admission?: No (6) Hypokalemia due to loss of potassium Is this a current diagnosis for this admission?: Yes Summary: Resolved; secondary to GI losses. (7) Ascites Is this a current diagnosis for this admission?: Yes Summary: Gradual improvement. Patient is noted to have a slightly tender abdomin with palpation and distention. Tenderness and distention continued to improve. ProBNP 416. CT of the abdomen and pelvis revealed large ascites. Patient denies history of CHF. She denies history of liver disease; chemistries appropriate other than low albumin (2.0). Ascites is likely secondary to C. difficile infection. Protein-losing enteropathy with hypoalbuminemia has been associated with C. difficile infection in the absence of fulminant colitis. We will continue to treat C. difficile infection as outlined above. - Additional Information Resuscitation Status: Do Not Resuscitate Discharge Diet: As Tolerated Discharge Activity: Activity As Tolerated, Balance Activity w/Rest, Slowly Increase Activity Prescriptions: Lactobacillus Acidophilus [Bacid 250 mg Tablet] 500 mg PO Q12 #120 tab Metronidazole [Flagyl 500 mg Tablet] 500 mg PO Q8 #12 tablet Trazodone HCl [Desyrel 50 mg Tablet] 50 mg PO QHS #30 tablet Vancomycin HCl 125 mg PO ASDIR PRN #7750 mg PRN Reason: Home Medications: Alendronate Sodium [Fosamax 70 mg Tablet] 70 mg PO MO@0800 11/06/12 Fenofibrate [Lofibra] 160 mg PO QHS 11/06/12 Simvastatin [Zocor 40 mg Tablet] 40 mg PO QHS 11/06/12 Desmopressin Acetate [Ddavp] 0.2 mg PO QHS 05/12/18 Fesoterodine Fumarate [Toviaz] 4 mg PO QHS 05/12/18 Multivit/Folic Acid/Vit K1 [One-A-Day Women's 50 Plus Tab] 1 each PO DAILY 05/12 Lactobacillus Acidophilus [Bacid 250 mg Tablet] 500 mg PO Q12 #120 tab 05/19/18 Metronidazole [Flagyl 500 mg Tablet] 500 mg PO Q8 #12 tablet 05/19/18 Trazodone HCl [Desyrel 50 mg Tablet] 50 mg PO QHS #30 tablet 05/19/18 Vancomycin HCl 125 mg PO ASDIR PRN #7750 mg 05/19/18 History of Present Illness Admission Date/PCP: 05/12/18 12:55 FABRICIO MEDEIROS MD History of Present Illness: JOSE LUIS JACOBS is a 78 year old female presents to [facility] with a one-week history of watery diarrhea. The patient was diagnosed with C. difficile in March 2018, she was treated with oral vancomycin and her symptoms resolved. She states that approximately 1 week ago she began experiencing watery diarrhea again. Of note , her has also been diagnosed with C. difficile colitis stemming from antibiotic therapy to treat cellulitis. He subsequently developed sepsis and vancomycin resistant C. difficile. Admitted to hospice care yesterday. The patient states that her diarrhea has been ongoing (day and night) for the last week. She went to see her primary care doctor who performed a C. difficile PCR which was negative. He prescribed Imodium and instructed the patient take Tylenol for her associated abdominal pain. The patient's family was very concerned about her symptomology, especially given the current state of the patient's , which prompted them to bring her to the emergency department. PMH includes HLD, C. difficile Upon arrival to the emergency department, the patient's vital signs were BP 96/ 54 HR 120 T 99.7 RR 22 SPO2 100% RA. Her lab work is relatively benign. No leukocytosis. There is evidence of a left shift without elevated WBCs. UA negative for UTI. Stool culture and C. difficile PCR pending. Upon assessment , the patient is awake and oriented. She appears very pale. Oral mucous membranes are dry and tacky. Lung sounds clear to auscultation. S1S2. No murmur, rub, gallop. Entire abdomen TTP. The patient states she experienced 3- 4 episodes of diarrhea today. She denies nausea or vomiting, states she is having diarrhea day and night. She denies fever, endorses chills. Admit to hospitalist service for treatment of suspected recurrence of C. difficile infection. Physical Exam Vital Signs: Temp Pulse Resp BP Pulse Ox 98.2 F 104 H 16 146/55 H 95 05/19/18 10:45 05/19/18 10:45 05/19/18 10:45 05/19/18 10:45 05/19/18 10:45 Intake & Output 05/18/18 05/19/18 05/20/18 06:59 06:59 06:59 Intake Total 925 1662 Output Total 1575 2500 Balance -650 -838 Weight 76.7 kg 78.2 kg General appearance: PRESENT: no acute distress, hard of hearing, well-developed , well-nourished, other Head exam: PRESENT: atraumatic, normocephalic Eye exam: PRESENT: conjunctiva pink, EOMI, PERRLA. ABSENT: scleral icterus Ear exam: PRESENT: normal external ear exam Mouth exam: PRESENT: moist, tongue midline Neck exam: ABSENT: carotid bruit, JVD, lymphadenopathy, thyromegaly Respiratory exam: PRESENT: clear to auscultation sebastien, symmetrical, unlabored - Overweight. ABSENT: rales, rhonchi, wheezes Cardiovascular exam: PRESENT: RRR, +S1, +S2. ABSENT: diastolic murmur, rubs, systolic murmur Pulses: PRESENT: normal dorsalis pedis pul Vascular exam: PRESENT: normal capillary refill GI/Abdominal exam: PRESENT: distended - Improved from yesterday, normal bowel sounds, soft, tenderness. ABSENT: guarding, mass, organolmegaly, rebound Rectal exam: PRESENT: deferred Extremities exam: PRESENT: full ROM. ABSENT: calf tenderness, clubbing, pedal edema Neurological exam: PRESENT: alert, awake, oriented to person, oriented to place , oriented to time, oriented to situation, CN II-XII grossly intact. ABSENT: motor sensory deficit Psychiatric exam: PRESENT: anxious, appropriate affect, normal mood. ABSENT: homicidal ideation, suicidal ideation Skin exam: PRESENT: dry, intact, warm. ABSENT: cyanosis, rash Results Laboratory Results: 05/19/18 05:19 05/18/18 04:33 05/19/18 05:19 WBC 10.6 H RBC 3.43 L Hgb 10.0 L Hct 29.6 L MCV 86 MCH 29.1 MCHC 33.7 RDW 15.2 H Plt Count 351 05/17/18 05:15 NT-Pro-B Natriuret Pep 416 Impressions: KUB X-Ray 05/12/18 00:00 IMPRESSION: NO RADIOGRAPHIC EVIDENCE FOR ACUTE ABDOMINAL DISEASE. Chest X-Ray 05/13/18 16:18 IMPRESSION: Trace left pleural effusion. No consolidation. Abdomen/Pelvis CT 05/15/18 12:39 IMPRESSION: Small pleural effusions with compressive atelectasis in the lower lobes. Ascites. Transfer Plan - Disposition Transfer Plan: The patient is transferred to [facility] for short-term rehabilitation. - Time Spent with Patient Time spent with patient: Less than 30 Minutes Qualifiers - * PATIENT BEING DISCHARGED WITH ANY OF THE FOLLOWING DIAGNOSIS: No Plan Discharge Plan: The patient is transferred to [facility] for short-term rehabilitation. The patient should follow-up with her primary care provider within 1 week of discharge from SNF. Recommend repeat CBC and chemistry within the next 5-7 days. Time Spent: Greater than 30 Minutes
[2018-05-19] MEDS ORDERED: METRONIDAZOLE 500 MG TABLET PO SCH (14:00)
[2018-05-19 16:01] VITALS: BP 140/57
== END 2018-05-19 19:46 | DRG 872 ==
LOC: ER 11:14 → EH 12:55 → 3S 16:37 → 4N 05-17 22:30
PROVIDERS: ADMIT Internal Medicine; ATTEND Internal Medicine
DX: A41.9 Sepsis, unspecified organism (principal); A04.71 Enterocolitis due to Clostridium difficile, recurrent; R18.8 Other ascites; K90.49 Malabsorption due to intolerance, not elsewhere classified; L89.329 Pressure ulcer of left buttock, unspecified stage; Z66 Do not resuscitate; E78.00 Pure hypercholesterolemia, unspecified; M19.90 Unspecified osteoarthritis, unspecified site; E87.6 Hypokalemia; F43.21 Adjustment disorder with depressed mood
CPT/HCPCS: 36415; 71045; 74018; 74177; 80048; 80053; 81001; 83605; 83735; 83880; 85025; 85027; 86140; 87040; 87045; 87086; 87205; 87493; 94799; 99285; G8978-GP; G8979-GP; G8987-GO; G8988-GO; J0131; J3370; J3475; J3480; J7030

== ENCOUNTER 2018-09-07 17:07 | Inpatient (IN) | payer MEDICARE, BC ==
[2018-09-07] MEDS ORDERED: KETOROLAC TROMETHAMINE INJ/PF 30 MG/1 ML SDV IV ONE (17:42)
[2018-09-07] MEDS ORDERED: NORMAL SALINE 1000 ML 1,000 ML IV ONE (17:42)
[2018-09-07] MEDS ORDERED: ONDANSETRON HCL INJ/PF 4 MG/2 ML SDV IV ONE (17:42)
--- NOTE | 2018-09-07 17:43 | ER Document Report ---
ED GI/ - General Chief Complaint: Abdominal Pain Stated Complaint: WEAKNESS Time Seen by Provider: 09/07/18 17:20 Notes: This is an 78-year-old female patient to the emergency department chief complaint of "C. difficile". Patient followed by Dr. Naqvi. Had a Clostridium difficile test performed which apparently came back positive. Patient states that she cannot stand the pain anymore. She is complaining of diffuse pain in the abdomen. No fever. Persistent diarrhea. Has not started anything for the C. difficile. Denies any blood in the stool. TRAVEL OUTSIDE OF THE [place] IN LAST 30 DAYS: No - HPI Patient complains to provider of: Abdominal pain, Diarrhea Timing/Duration: Gradual, Constant Quality of pain: Achy Severity at maximum: Moderate Severity in ED: Moderate Pain Level: 4 - Related Data Allergies/Adverse Reactions: Sulfa (Sulfonamide Antibiotics) Allergy (Severe, Verified 05/12/18 13:40) ITCHING AND HIVES Past Medical History - General Information source: Patient - Social History Smoking Status: Never Smoker Frequency of alcohol use: None Drug Abuse: None Family History: Reviewed & Not Pertinent - Past Medical History Cardiac Medical History: Reports: Hx Hypercholesterolemia Denies: Hx Coronary Artery Disease, Hx Heart Attack, Hx Hypertension Pulmonary Medical History: Denies: Hx Asthma, Hx Bronchitis, Hx COPD, Hx Pneumonia Neurological Medical History: Denies: Hx Cerebrovascular Accident, Hx Seizures Renal/ Medical History: Denies: Hx Peritoneal Dialysis Musculoskeletal Medical History: Reports Hx Arthritis Past Surgical History: Reports: Hx Appendectomy, Hx Cholecystectomy, Hx Hysterectomy. Denies: Hx Pacemaker - Immunizations Hx Diphtheria, Pertussis, Tetanus Vaccination: No Review of Systems - Review of Systems Notes: Constitutional: denies: Chills, Diaphoresis, Fever, Malaise, Weakness EENT: denies: Eye discharge, Blurred vision, Tearing, Double vision, Nose congestion, Nose discharge, Throat swelling, Mouth pain Cardiovascular: denies: Palpitations, Heart racing, Orthopnea, Dyspnea, Chest pain Respiratory: denies: Cough, Hurts to breathe, Wheezing, Shortness of breath Gastrointestinal: Abdominal pain, diarrhea. No blood in the stool. Positive C. difficile. Genitourinary: denies: Burning, Dysuria, Discharge, Frequency, Flank pain, Hematuria Musculoskeletal: denies: Joint pain, Joint swelling, Muscle pain, Muscle stiffness, back pain Hematologic/Lymphatic: denies: Anemia, Easy bleeding, Easy bruising, Blood clots Neurological/Psychological: denies: Confusion, Dementia, Depression, Loss of consciousness Skin: No lesions, no masses, no skin breakdown, no abscesses Physical Exam - Vital signs Vitals: Resp Pulse Ox 21 H 95 09/07/18 17:29 09/07/18 17:29 Interpretation: Tachycardic - General General appearance: Appears well, Alert - HEENT Head: Normocephalic, Atraumatic Eyes: Normal Pupils: PERRL - Respiratory Respiratory status: No respiratory distress Chest status: Nontender Breath sounds: Normal Chest palpation: Normal - Cardiovascular Rhythm: Tachycardia Heart sounds: Normal auscultation Murmur: No - Abdominal Inspection: Normal Distension: No distension Bowel sounds: Normal Tenderness: Tender, Guarding Organomegaly: No organomegaly - Back Back: Normal, Nontender - Extremities General upper extremity: Normal inspection, Nontender, Normal color, Normal ROM , Normal temperature General lower extremity: Normal inspection, Nontender, Normal color, Normal ROM , Normal temperature. No: Laila's sign - Neurological Neuro grossly intact: Yes Cognition: Normal Orientation: AAOx4 [place] Coma Scale Eye Opening: Spontaneous [place] Coma Scale Verbal: Oriented [place] Coma Scale Motor: Obeys Commands [place] Coma Scale Total: 15 Speech: Normal Motor strength normal: LUE, RUE, LLE, RLE Sensory: Normal - Psychological Associated symptoms: Normal affect, Normal mood - Skin Skin Temperature: Warm Skin Moisture: Dry Skin Color: Normal Course - Re-evaluation Re-evalutation: 09/07/18 21:09 Laboratory 09/07/18 09/07/18 09/07/18 17:32 17:32 17:32 WBC 12.6 H RBC 3.96 Hgb 11.8 L Hct 35.4 L MCV 90 MCH 29.9 MCHC 33.4 RDW 13.2 Plt Count 323 Total Counted 100 Seg Neutrophils % Not Reportable Seg Neuts % (Manual) 83 H Band Neutrophils % 9 H Lymphocytes % Not Reportable Lymphocytes % (Manual) 5 L Monocytes % Not Reportable Monocytes % (Manual) 2 L Eosinophils % Not Reportable Eosinophils % (Manual) 1 Basophils % Not Reportable Basophils % (Manual) 0 Absolute Neutrophils Not Reportable Abs Neuts (Manual) 11.6 H Absolute Lymphocytes Not Reportable Abs Lymphs (Manual) 0.6 Absolute Monocytes Not Reportable Abs Monocytes (Manual) 0.3 Absolute Eosinophils Not Reportable Absolute Eos (Manual) 0.1 Absolute Basophils Not Reportable Abs Basophils (Manual) 0.0 Toxic Granulation 3+ Toxic Vacuolation PRESENT Dohle Bodies PRESENT Large Platelets PRESENT Platelet Comment ADEQUATE Sodium 134.2 L Potassium 3.9 Chloride 98 Carbon Dioxide 26 Anion Gap 10 BUN 41 H Creatinine 1.31 H Est GFR ( Amer) 47 L Est GFR (Non-Af Amer) 39 L Glucose 140 H Calcium 8.6 Total Bilirubin 0.9 Direct Bilirubin 0.3 Neonat Total Bilirubin Not Reportable Neonat Direct Bilirubin Not Reportable Neonat Indirect Bili Not Reportable AST 47 H ALT 33 Alkaline Phosphatase 67 Total Protein 6.1 L Albumin 3.1 L Lipase 14.9 L Urine Color Urine Appearance Urine pH Ur Specific [place] Urine Protein Urine Glucose (UA) Urine Ketones Urine Blood Urine Nitrite Urine Bilirubin Urine Urobilinogen Ur Leukocyte Esterase Urine WBC (Auto) Urine RBC (Auto) U Hyaline Cast (Auto) Urine Bacteria (Auto) Squamous Epi Cells Auto Urine Mucus (Auto) Urine Ascorbic Acid 09/07/18 19:43 WBC RBC Hgb Hct MCV MCH MCHC RDW Plt Count Total Counted Seg Neutrophils % Seg Neuts % (Manual) Band Neutrophils % Lymphocytes % Lymphocytes % (Manual) Monocytes % Monocytes % (Manual) Eosinophils % Eosinophils % (Manual) Basophils % Basophils % (Manual) Absolute Neutrophils Abs Neuts (Manual) Absolute Lymphocytes Abs Lymphs (Manual) Absolute Monocytes Abs Monocytes (Manual) Absolute Eosinophils Absolute Eos (Manual) Absolute Basophils Abs Basophils (Manual) Toxic Granulation Toxic Vacuolation Dohle Bodies Large Platelets Platelet Comment Sodium Potassium Chloride Carbon Dioxide Anion Gap BUN Creatinine Est GFR ( Amer) Est GFR (Non-Af Amer) Glucose Calcium Total Bilirubin Direct Bilirubin Neonat Total Bilirubin Neonat Direct Bilirubin Neonat Indirect Bili AST ALT Alkaline Phosphatase Total Protein Albumin Lipase Urine Color ELGIN Urine Appearance CLOUDY Urine pH 5.0 Ur Specific [place] 1.018 Urine Protein 30 H Urine Glucose (UA) NEGATIVE Urine Ketones NEGATIVE Urine Blood NEGATIVE Urine Nitrite NEGATIVE Urine Bilirubin NEGATIVE Urine Urobilinogen 2.0 H Ur Leukocyte Esterase MODERATE H Urine WBC (Auto) 22 Urine RBC (Auto) 2 U Hyaline Cast (Auto) 10 Urine Bacteria (Auto) TRACE Squamous Epi Cells Auto 1 Urine Mucus (Auto) RARE Urine Ascorbic Acid NEGATIVE Abdomen/Pelvis CT 09/07/18 17:41 IMPRESSION: Colitis. Patient with C. difficile colitis, elevated WBC count, abdominal pain. I am hydrating at this time however patient feels still very uncomfortable. I am uncomfortable discharging. At this time will consult with hospitalist for admission. - Vital Signs Vital signs: Temp Pulse Resp BP Pulse Ox 98.2 F 101 H 17 102/50 L 98 09/07/18 17:36 09/07/18 17:36 09/07/18 20:02 09/07/18 20:02 09/07/18 20:02 - Laboratory Result Diagrams: 09/07/18 17:32 09/07/18 17:32 Laboratory results interpreted by me: 09/07/18 09/07/18 09/07/18 17:32 17:32 17:32 WBC 12.6 H Hgb 11.8 L Hct 35.4 L Seg Neuts % (Manual) 83 H Band Neutrophils % 9 H Lymphocytes % (Manual) 5 L Monocytes % (Manual) 2 L Abs Neuts (Manual) 11.6 H Sodium 134.2 L BUN 41 H Creatinine 1.31 H Est GFR ( Amer) 47 L Est GFR (Non-Af Amer) 39 L Glucose 140 H AST 47 H Total Protein 6.1 L Albumin 3.1 L Lipase 14.9 L Urine Protein Urine Urobilinogen Ur Leukocyte Esterase 09/07/18 19:43 WBC Hgb Hct Seg Neuts % (Manual) Band Neutrophils % Lymphocytes % (Manual) Monocytes % (Manual) Abs Neuts (Manual) Sodium BUN Creatinine Est GFR ( Amer) Est GFR (Non-Af Amer) Glucose AST Total Protein Albumin Lipase Urine Protein 30 H Urine Urobilinogen 2.0 H Ur Leukocyte Esterase MODERATE H - EKG Interpretation by Me EKG shows normal: [place], Intervals, QRS Complexes, ST-T Waves Rate: Tachycardia Discharge - Discharge Clinical Impression: C. difficile colitis, SIRS (systemic inflammatory response syndrome) Condition: Good Disposition: ADMITTED INPATIENT Admitting Provider: Hospitalist - [place] [facility] Admitted: Telemetry Referrals: FABRICIO NAQVI MD [Primary Care Provider] - Follow up as needed
[2018-09-07 17:56] LABS: HEMATOCRIT 35.4 % (36.0-47.0); HEMOGLOBIN 11.8 g/dL (12.0-15.5); MEAN CORPUSCULAR HEMOGLOBIN 29.9 pg (27.0-33.4); MEAN CORPUSCULAR HGB CONC 33.4 g/dL (32.0-36.0); MEAN CORPUSCULAR VOLUME 90 fl (80-97); PLATELET COUNT 323 10^3/uL (150-450); RED BLOOD COUNT 3.96 10^6/uL (3.72-5.28); RED CELL DISTRIBUTION WIDTH 13.2 % (11.5-14.0); WHITE BLOOD COUNT 12.6 10^3/uL (4.0-10.5)
[2018-09-07 18:03] LABS: ALANINE AMINOTRANSFERASE 33 U/L (9-52); ALBUMIN 3.1 g/dL (3.5-5.0); ALKALINE PHOSPHATASE 67 U/L (38-126); ANION GAP 10 (5-19); ASPARTATE AMINO TRANSFERASE 47 U/L (14-36); BILIRUBIN,DIRECT 0.3 mg/dL (0.0-0.4); BILIRUBIN,TOTAL 0.9 mg/dL (0.2-1.3); BLOOD UREA NITROGEN 41 mg/dL (7-20); CALCIUM 8.6 mg/dL (8.4-10.2); CARBON DIOXIDE 26 mmol/L (22-30); CHLORIDE 98 mmol/L (98-107); GLUCOSE 140 mg/dL (75-110); POTASSIUM 3.9 mmol/L (3.6-5.0); SODIUM 134.2 mmol/L (137-145); TOTAL PROTEIN 6.1 g/dL (6.3-8.2)
[2018-09-07 18:35] LABS: ABSOLUTE LYMPHOCYTES# (MANUAL) 0.6 10^3/uL (0.5-4.7); ABSOLUTE MONOCYTES # (MANUAL) 0.3 10^3/uL (0.1-1.4); ABSOLUTE NEUTROPHILS# (MANUAL) 11.6 10^3/uL (1.7-8.2); BAND NEUTROPHILS % (MANUAL) 9 % (3-5); BASOPHILS % (MANUAL) 0 % (0-2); EOSINOPHILS % (MANUAL) 1 % (0-6); LYMPHOCYTES % (MANUAL) 5 % (13-45); MONOCYTES % (MANUAL) 2 % (3-13); SEGMENTED NEUTROPHILS % (MAN) 83 % (42-78); TOTAL CELLS COUNTED 100; TOXIC GRANULATION 3+; TOXIC VACUOLATION PRESENT
[2018-09-07 18:36] LABS: PLATELET COMMENT ADEQUATE; PLATELET LARGE PRESENT
--- NOTE | 2018-09-07 19:56 | EKG REPORT ---
SEVERITY:- BORDERLINE ECG - SINUS TACHYCARDIA PROBABLE LEFT ATRIAL ABNORMALITY : Confirmed by: Radha Anton MD 07-Sep-2018 19:55:15
[2018-09-07 19:57] LABS: APPEARANCE,URINE CLOUDY; BILIRUBIN,URINE NEGATIVE (NEGATIVE); COLOR,URINE AMBER; GLUCOSE, URINE NEGATIVE (NEGATIVE); KETONES,URINE NEGATIVE (NEGATIVE); LEUKOCYTE ESTERASE,URINE MODERATE (NEGATIVE); NITRITE,URINE NEGATIVE (NEGATIVE); PROTEIN,URINE 30 mg/dL (NEGATIVE); URINE SPECIFIC GRAVITY 1.018
--- NOTE | 2018-09-07 20:53 | RADIOLOGY REPORT (SQ) ---
EXAM DESCRIPTION: CT ABD/PELVIS WITH IV ORAL COMPLETED DATE/TIME: 09/07/2018 8:41 pm REASON FOR STUDY: abd pain, colitis COMPARISON: 05/15/2018 TECHNIQUE: CT scan of the abdomen and pelvis performed using helical scanning technique with dynamic intravenous contrast injection. No oral contrast. Images reviewed with lung, soft tissue, and bone windows. Reconstructed coronal and sagittal MPR images reviewed. Delayed images for evaluation of the urinary system also acquired. All images stored on PACS. All CT scanners at this facility use dose modulation, iterative reconstruction, and/or weight based d osing when appropriate to reduce radiation dose to as low as reasonably achievable (ALARA). [facility]: Dose Right [facility]: CareDose [facility]: Dose Right [facility]: Teradose 4D [facility]: [employer] CONTRAST TYPE AND DOSE: contrast/concentration: Isovue 350.00 mg/ml; Total Contrast Delivered: 74.0 ml; Total Saline Delivered: 41.0 ml RENAL FUNCTION: BUN 41 creatinine 1.3 RADIATION DOSE: CT Rad equipment meets quality standard of care and radiation dose reduction techniq ues were employed. CTDIvol: 7.9 - 10.4 mGy. DLP: 977 mGy-cm.. LIMITATIONS: None. FINDINGS: LOWER CHEST: No significant findings. No nodules or infiltrates. LIVER: Normal size. No masses. No dilated ducts. SPLEEN: Normal size. No focal lesions. PANCREAS: No masses. No significant calcifications. No adjacent inflammation or peripancreatic fluid collections. Pancreatic duct not dilated. GALLBLADDER: Surgically absent. ADRENAL GLANDS: No significant masses or asymmetry. RIGHT KIDNEY AND URETER: No solid masses. No significant calcifications. No hydronephrosis or hyd roureter. LEFT KIDNEY AND URETER: No solid masses. No significant calcifications. No hydronephrosis or hydr oureter. AORTA AND VESSELS: No aneurysm. No dissection. Renal arteries, SMA, celiac without stenosis. RETROPERITONEUM: No retroperitoneal adenopathy, hemorrhage or masses. BOWEL AND PERITONEAL CAVITY: There is thickening of the wall of colon throughout the colon. No obvio us mass. There is stranding in the fat around the colon. APPENDIX: Surgically absent. PELVIS: No mass. No free fluid. Normal bladder. ABDOMINAL WALL: No masses. No hernias. BONES: Scoliosis. OTHER: No other significant finding. IMPRESSION: Colitis. TECHNICAL DOCUMENTATION: JOB ID: [id number] Quality ID # [id number]: Final reports with documentation of one or more dose reduction techniques (e.g., Au tomated exposure control, adjustment of the mA and/or kV according to patient size, use of iterative reconstruction technique) 2010 [employer]- All Rights Reserved Reading location - IP/workstation name: [email or web address]
[2018-09-07] MEDS ORDERED: VANCOMYCIN HCL INJ 500 MG VIAL PO ONE (21:14)
[2018-09-07] MEDS ORDERED: IPRATROPIUM/ALBUTEROL 0.5-2.5 MG/3 ML AMPUL NEB PRN (21:17)
[2018-09-07] MEDS ORDERED: ACETAMINOPHEN 325 MG TABLET PO PRN (21:17)
[2018-09-07] MEDS ORDERED: ONDANSETRON HCL INJ/PF 4 MG/2 ML SDV IV PRN (21:17)
[2018-09-07] MEDS ORDERED: DEXTROSE 5%-WATER 250 ML with NOREPINEPHRINE BITARTRATE 4 MG IV PRN ×2 (21:17)
[2018-09-07] MEDS: METRONIDAZOLE 500 MG/NS RTU 500 MG/100 ML RTUPB IV SCH (21:34)
[2018-09-07] MEDS: TRAZODONE HCL 50 MG TABLET PO SCH (21:52)
[2018-09-07] MEDS: NORMAL SALINE 1000 ML 1,000 ML IV PRN ×2 (21:53→23:02)
[2018-09-07] MEDS: HEPARIN SOD (PORCINE) 5,000 UNIT/ML 1 ML SYRINGE SUBCUT SCH (21:53)
[2018-09-07] MEDS ORDERED: NOREPINEPHRINE BITARTRATE INJ/PF 4 MG/4 ML SDV IV ONE (22:26)
[2018-09-07] MEDS: DESMOPRESSIN ACETATE 0.1 MG TABLET PO SCH (23:01)
[2018-09-08] MEDS: METRONIDAZOLE 500 MG/NS RTU 500 MG/100 ML RTUPB IV SCH ×4 (00:34→17:21)
[2018-09-08] MEDS: NORMAL SALINE 1000 ML 1,000 ML IV PRN ×3 (03:01→16:00)
[2018-09-08 04:33] LABS: HEMOGLOBIN 11.6 g/dL (12.0-15.5); MEAN CORPUSCULAR HEMOGLOBIN 29.6 pg (27.0-33.4); MEAN CORPUSCULAR HGB CONC 33.2 g/dL (32.0-36.0); MEAN CORPUSCULAR VOLUME 89 fl (80-97); PLATELET COUNT 314 10^3/uL (150-450); RED BLOOD COUNT 3.93 10^6/uL (3.72-5.28); RED CELL DISTRIBUTION WIDTH 13.5 % (11.5-14.0); WHITE BLOOD COUNT 14.3 10^3/uL (4.0-10.5)
[2018-09-08 04:50] LABS: ANION GAP 12 (5-19); BLOOD UREA NITROGEN 30 mg/dL (7-20); CALCIUM 7.7 mg/dL (8.4-10.2); CARBON DIOXIDE 20 mmol/L (22-30); CHLORIDE 104 mmol/L (98-107); GLUCOSE 98 mg/dL (75-110); POTASSIUM 3.7 mmol/L (3.6-5.0); SODIUM 135.6 mmol/L (137-145)
[2018-09-08] MEDS: HEPARIN SOD (PORCINE) 5,000 UNIT/ML 1 ML SYRINGE SUBCUT SCH ×3 (05:00→22:16)
[2018-09-08 05:05] LABS: ABSOLUTE LYMPHOCYTES# (MANUAL) 1.4 10^3/uL (0.5-4.7); ABSOLUTE MONOCYTES # (MANUAL) 0.9 10^3/uL (0.1-1.4); ABSOLUTE NEUTROPHILS# (MANUAL) 11.7 10^3/uL (1.7-8.2); BASOPHILS % (MANUAL) 0 % (0-2); BURR CELLS SLIGHT; EOSINOPHILS % (MANUAL) 2 % (0-6); LYMPHOCYTES % (MANUAL) 10 % (13-45); MONOCYTES % (MANUAL) 6 % (3-13); PLATELET COMMENT ADEQUATE; POLYCHROMASIA SLIGHT; SEGMENTED NEUTROPHILS % (MAN) 82 % (42-78); TOTAL CELLS COUNTED 100; TOXIC GRANULATION 1+; TOXIC VACUOLATION PRESENT
[2018-09-08] MEDS ORDERED: VANCOMYCIN HCL INJ 500 MG VIAL PO SCH (06:00)
--- NOTE | 2018-09-08 06:11 | PDOC H&P ---
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 Patiently recently after her 's fatal complication of C. difficile colitis. Patient presents with 4 days of abdominal pain seeking evaluation by urologist she was diagnosed with urinary tract infection placed on empiric antibiotics but had worsening of symptoms including diarrhea. In the emergency room she is found to have abdominal pain, colitis by CT leukocytosis, hypotension and C. difficile positive stools. She started on vancomycin and referred to the hospitalist for admission. Past Medical History Cardiac Medical History: Reports: Hyperlipidema Denies: Coronary Artery Disease, Myocardial Infarction, Hypertension Pulmonary Medical History: Denies: Asthma, Bronchitis, Chronic Obstructive Pulmonary Disease (COPD), Pneumonia Neurological Medical History: Denies: Seizures Musculoskeltal Medical History: Reports: Arthritis Psychiatric Medical History: Reports: Depression Hematology: Denies: Anemia Infectious Medical History: Reports: Clostridium Difficile Past Surgical History Past Surgical History: Reports: Appendectomy, Cholecystectomy, Hysterectomy Denies: Pacemaker Social History Information Source: Patient Lives with: Alone Smoking Status: Never Smoker Frequency of Alcohol Use: None Hx Recreational Drug Use: No Hx Prescription Drug Abuse: No - Advance Directive Resuscitation Status: Full Code Family History Family History: Hypertension, Other - of C. difficile colitis Parental Family History Reviewed: Yes Children Family History Reviewed: Yes Sibling(s) Family History Reviewed.: Yes Medication/Allergy Home Medications: Alendronate Sodium [Fosamax 70 mg Tablet] 70 mg PO MO@0800 11/06/12 Fenofibrate [Lofibra] 160 mg PO QHS 11/06/12 Simvastatin [Zocor 40 mg Tablet] 40 mg PO QHS 11/06/12 Desmopressin Acetate [Ddavp] 0.2 mg PO QHS 05/12/18 Fesoterodine Fumarate [Toviaz] 4 mg PO QHS 05/12/18 Multivit/Folic Acid/Vit K1 [One-A-Day Women's 50 Plus Tab] 1 each PO DAILY 05/12 Lactobacillus Acidophilus [Bacid 250 mg Tablet] 500 mg PO Q12 #120 tab 05/19/18 Metronidazole [Flagyl 500 mg Tablet] 500 mg PO Q8 #12 tablet 05/19/18 Trazodone HCl [Desyrel 50 mg Tablet] 50 mg PO QHS #30 tablet 05/19/18 Vancomycin HCl 125 mg PO ASDIR PRN #7750 mg 05/19/18 Allergies/Adverse Reactions: Sulfa (Sulfonamide Antibiotics) Allergy (Severe, Verified 05/12/18 13:40) ITCHING AND HIVES Review of Systems Constitutional: PRESENT: as per HPI, anorexia, chills, fatigue, weakness. ABSENT: fever(s) Eyes: ABSENT: visual disturbances Ears: ABSENT: hearing changes Cardiovascular: ABSENT: chest pain, dyspnea on exertion, edema, orthropnea, palpitations Respiratory: ABSENT: cough, hemoptysis Gastrointestinal: PRESENT: as per HPI, abdominal pain, bloating, diarrhea, nausea. ABSENT: coffee ground emesis, constipation, dysphagia, melena Genitourinary: ABSENT: dysuria, hematuria Musculoskeletal: ABSENT: joint swelling Integumentary: ABSENT: rash, wounds Neurological: ABSENT: abnormal gait, abnormal speech, confusion, dizziness, focal weakness, syncope Psychiatric: ABSENT: anxiety, depression, homidical ideation, suicidal ideation Endocrine: ABSENT: cold intolerance, heat intolerance, polydipsia, polyuria Hematologic/Lymphatic: ABSENT: easy bleeding, easy bruising Physical Exam Vital Signs: Temp Pulse Resp BP Pulse Ox 98.6 F 96 18 115/52 L 99 09/08/18 04:00 09/08/18 04:00 09/08/18 04:00 09/08/18 04:00 09/08/18 04:00 Intake & Output 09/06/18 09/07/18 09/08/18 11:59 11:59 11:59 Intake Total 1902 Output Total 500 Balance 1402 Weight 66.2 kg General appearance: PRESENT: cooperative, severe distress. ABSENT: disheveled, hard of hearing Head exam: PRESENT: atraumatic, normocephalic Eye exam: PRESENT: conjunctiva pink, EOMI, PERRLA. ABSENT: scleral icterus Ear exam: PRESENT: normal external ear exam Mouth exam: PRESENT: dry mucosa. ABSENT: laceration, moist Neck exam: ABSENT: carotid bruit, JVD, lymphadenopathy, thyromegaly Respiratory exam: PRESENT: clear to auscultation sebastien, tachypnea. ABSENT: rales , rhonchi, wheezes Cardiovascular exam: PRESENT: tachycardia. ABSENT: diastolic murmur, rubs, systolic murmur Pulses: PRESENT: normal dorsalis pedis pul Vascular exam: PRESENT: normal capillary refill GI/Abdominal exam: PRESENT: distended, guarding, hypoactive bowel sounds, soft, tenderness. ABSENT: mass Rectal exam: PRESENT: deferred Extremities exam: PRESENT: full ROM. ABSENT: calf tenderness, clubbing, pedal edema Neurological exam: PRESENT: alert, awake, oriented to person, oriented to place , oriented to time, oriented to situation, CN II-XII grossly intact. ABSENT: motor sensory deficit Psychiatric exam: PRESENT: appropriate affect, normal mood. ABSENT: homicidal ideation, suicidal ideation Skin exam: PRESENT: dry, intact, warm. ABSENT: cyanosis, rash Results Laboratory Results: 09/08/18 04:19 09/08/18 04:19 09/08/18 09/08/18 04:19 04:19 WBC 14.3 H RBC 3.93 Hgb 11.6 L Hct 35.0 L MCV 89 MCH 29.6 MCHC 33.2 RDW 13.5 Plt Count 314 Seg Neutrophils % Not Reportable Lymphocytes % Not Reportable Monocytes % Not Reportable Eosinophils % Not Reportable Basophils % Not Reportable Absolute Neutrophils Not Reportable Absolute Lymphocytes Not Reportable Absolute Monocytes Not Reportable Absolute Eosinophils Not Reportable Absolute Basophils Not Reportable Sodium 135.6 L Potassium 3.7 Chloride 104 Carbon Dioxide 20 L Anion Gap 12 BUN 30 H Creatinine 0.92 Est GFR ( Amer) > 60 Est GFR (Non-Af Amer) 59 L Glucose 98 Calcium 7.7 L Impressions: Abdomen/Pelvis CT 09/07/18 17:41 IMPRESSION: Colitis. Assessment & Plan - Diagnosis (1) C. difficile colitis Is this a current diagnosis for this admission?: Yes Plan: Complicated recurrent C. difficile colitis, tolerating p.o. vancomycin, abdominal exam concerning for guarding and possible evolving toxic megacolon, follow-up surgical consult, CBC and chemistry (2) SIRS (systemic inflammatory response syndrome) Is this a current diagnosis for this admission?: Yes Plan: Secondary to #1, IV fluid challenge, Levophed as needed - Time Time Spent: 50 to 70 Minutes - Inpatient Certification Medical Necessity: Need Close Monitoring Due to Risk of Patient Decompensation
[2018-09-08] MEDS ORDERED: HYDROCORTISONE SOD SUCCINATE INJ/PF 100 MG/2 ML SDV IV ONE (07:00)
[2018-09-08] MEDS ORDERED: NORMAL SALINE 1000 ML 1,000 ML IV ONE (07:00)
[2018-09-08] MEDS: VANCOMYCIN HCL INJ 500 MG VIAL PO SCH ×2 (11:05→17:22)
[2018-09-08] MEDS: HYDROCORTISONE SOD SUCCINATE INJ/PF 100 MG/2 ML SDV IV SCH ×2 (11:05→17:22)
--- NOTE | 2018-09-08 12:24 | PDOC CONSULTATION ---
History of Present Illness Admission Date/PCP: 09/07/18 21:36 FABRICIO MEDEIROS MD Patient complains of: Diarrhea and abdominal pain History of Present Illness: JOSE LUIS JACOBS is a 78 year old female with history of C. difficile colitis several months ago which was managed medically. She had a urinary tract infection for which she was prescribed antibiotics about a month ago. She had recurrence of her abdominal pain and diarrhea about a week and a half ago. With the symptoms persisting she came in through the emergency department. Since she has been admitted last night she states that she feels better with decreased abdominal pain and an actual appetite for the first time in several days. She states that the pain and diarrhea associated with this current episode of apparent C. difficile colitis is less than her previous episode several months ago. Her from complications of C. difficile colitis recently. Patient understands the seriousness of this illness but she is extremely resistant to undergo any procedure that would require an ostomy. She has had a rare episodes of nausea and vomiting but mostly dry heaves. Past Medical History Cardiac Medical History: Reports: Hyperlipidema Denies: Coronary Artery Disease, Myocardial Infarction, Hypertension Pulmonary Medical History: Denies: Asthma, Bronchitis, Chronic Obstructive Pulmonary Disease (COPD), Pneumonia Neurological Medical History: Denies: Seizures Musculoskeltal Medical History: Reports: Arthritis Psychiatric Medical History: Reports: Depression Hematology: Denies: Anemia Infectious Medical History: Reports: Clostridium Difficile Past Surgical History Past Surgical History: Reports: Appendectomy, Cholecystectomy, Hysterectomy Denies: Pacemaker Social History Lives with: Alone Smoking Status: Never Smoker Frequency of Alcohol Use: None Hx Recreational Drug Use: No Hx Prescription Drug Abuse: No - Advance Directive Resuscitation Status: Full Code Family History Family History: Hypertension, Other - of C. difficile colitis Parental Family History Reviewed: No Children Family History Reviewed: No Sibling(s) Family History Reviewed.: No Medication/Allergy Home Medications: Alendronate Sodium [Fosamax 70 mg Tablet] 70 mg PO MO@0800 11/06/12 Fenofibrate [Lofibra] 160 mg PO QHS 11/06/12 Simvastatin [Zocor 40 mg Tablet] 40 mg PO QHS 11/06/12 Fesoterodine Fumarate [Toviaz] 4 mg PO QHS 05/12/18 Multivit/Folic Acid/Vit K1 [One-A-Day Women's 50 Plus Tab] 1 each PO DAILY 05/12 Cyclosporine 0.05% Oph Emulsio [Restasis 0.05% Oph Emulsion Pf 0.4 ml] 1 drop OU BID 09/08/18 Allergies/Adverse Reactions: Sulfa (Sulfonamide Antibiotics) Allergy (Severe, Verified 05/12/18 13:40) ITCHING AND HIVES Physical Exam Vital Signs: Temp Pulse Resp BP Pulse Ox 98.6 F 96 19 109/49 L 96 09/08/18 04:00 09/08/18 10:18 09/08/18 10:15 09/08/18 10:10 09/08/18 10:15 Intake & Output 09/07/18 09/08/18 09/09/18 06:59 06:59 06:59 Intake Total 1932 1118 Output Total 500 600 Balance 1432 518 Weight 67.6 kg General appearance: PRESENT: no acute distress, cooperative Eye exam: PRESENT: conjunctiva pink Neck exam: PRESENT: other - Supple with no tenderness Respiratory exam: PRESENT: clear to auscultation sebastien Cardiovascular exam: PRESENT: RRR GI/Abdominal exam: PRESENT: other - Soft, mildly distended, diffuse abdominal tenderness to palpation but no rebound and no guarding. Neurological exam: PRESENT: alert, awake Psychiatric exam: PRESENT: appropriate affect Skin exam: PRESENT: warm Results Laboratory Results: 09/08/18 04:19 09/08/18 04:19 09/08/18 09/08/18 04:19 04:19 WBC 14.3 H RBC 3.93 Hgb 11.6 L Hct 35.0 L MCV 89 MCH 29.6 MCHC 33.2 RDW 13.5 Plt Count 314 Seg Neutrophils % Not Reportable Lymphocytes % Not Reportable Monocytes % Not Reportable Eosinophils % Not Reportable Basophils % Not Reportable Absolute Neutrophils Not Reportable Absolute Lymphocytes Not Reportable Absolute Monocytes Not Reportable Absolute Eosinophils Not Reportable Absolute Basophils Not Reportable Sodium 135.6 L Potassium 3.7 Chloride 104 Carbon Dioxide 20 L Anion Gap 12 BUN 30 H Creatinine 0.92 Est GFR ( Amer) > 60 Est GFR (Non-Af Amer) 59 L Glucose 98 Calcium 7.7 L Impressions: Abdomen/Pelvis CT 09/07/18 17:41 IMPRESSION: Colitis. Assessment & Plan - Diagnosis (1) C. difficile colitis Is this a current diagnosis for this admission?: Yes Plan: C. difficile colitis. Her tenderness and her colon wall thickening seen on CT scan are all concerning, however she has had improvement from last night with decreased abdominal pain, improved hemodynamics with her being currently weaned off levophed and according to the nursing staff, she is urinating. Patient also has an appetite for the first time in days. Keep patient n.p.o., continue Flagyl and vancomycin. Fluid resuscitation. Recommend Lee catheter to better manage her fluids. Surgical service will follow along closely. Will have low threshold to recommend total abdominal colectomy if she worsens, but as stated before she is very resistant to undergoing an ileostomy. An ileorectal anastomosis would be ill advised in this setting in this elderly patient.
[2018-09-08] MEDS ORDERED: HYDROCORTISONE SOD SUCCINATE INJ/PF 100 MG/2 ML SDV IV SCH (14:00)
--- NOTE | 2018-09-08 17:05 | PDOC TRANSFER SUMMARY ---
General Admission Date/PCP: 09/07/18 21:36 FABRICIO MEDEIROS MD Resuscitation Status: Full Code - Transfer Diagnosis (1) C. difficile colitis Is this a current diagnosis for this admission?: Yes (2) Recurrent Clostridium difficile diarrhea Is this a current diagnosis for this admission?: Yes - Transfer Medications Home Medications: Alendronate Sodium [Fosamax 70 mg Tablet] 70 mg PO MO@0800 11/06/12 Fenofibrate [Lofibra] 160 mg PO QHS 11/06/12 Simvastatin [Zocor 40 mg Tablet] 40 mg PO QHS 11/06/12 Fesoterodine Fumarate [Toviaz] 4 mg PO QHS 05/12/18 Multivit/Folic Acid/Vit K1 [One-A-Day Women's 50 Plus Tab] 1 each PO DAILY 05/12 Cyclosporine 0.05% Oph Emulsio [Restasis 0.05% Oph Emulsion Pf 0.4 ml] 1 drop OU BID 09/08/18 Transfer Medications: Current Medications Acetaminophen (Tylenol 325 Mg Tablet) 650 mg PO Q4HP PRN PRN Reason: FOR PAIN OR TEMP Stop: 10/07/18 21:16 Albuterol/Ipratropium (Duoneb 3 Ml Ampul) 3 ml NEB [id number] PRN PRN Reason: SHORTNESS OF BREATH Stop: 10/07/18 21:16 Alendronate Sodium (Fosamax "Weekly" 35 Mg Tablet) 70 mg PO Mo@0800 [facility] Stop: 10/11/18 07:59 Desmopressin Acetate (Ddavp 0.1 Mg Tablet) 0.2 mg PO QHS [facility] Stop: 10/07/18 21:59 Last Admin: 09/07/18 23:01 Dose: Not Given Heparin Sodium (Porcine) (Heparin Inj 5,000 Units/Ml 1 Ml Syringe) 5,000 unit SUBCUT Q8 [facility] Stop: 10/07/18 21:59 Last Admin: 09/08/18 14:39 Dose: 5,000 unit Hydrocortisone Sodium Succinate (Solu-Cortef Inj/Pf 100 Mg/ 2 Ml Sdv) 100 mg IV Q8A [facility] Stop: 10/08/18 10:59 Last Admin: 09/08/18 11:05 Dose: 100 mg Metronidazole (Flagyl Rtu 500 Mg/Ns 100ml Premix) 500 mg in 100 mls @ 100 mls/ hr IV Q6 [facility] Stop: 09/14/18 19:29 Last Infusion: 09/08/18 12:58 Dose: Infused Norepinephrine Bitartrate 4 mg (/ Dextrose) 250 mls @ 0 mls/hr IV CONTINUOUS PRN; Protocol; Titrate PRN Reason: THIS MED IS NOT "PRN" Stop: 10/07/18 21:16 Last Titration: 09/08/18 14:00 Dose: Infused Sodium Chloride (Nacl 0.9% 1000 Ml Iv Soln) 1,000 mls @ 125 mls/hr IV CONTINUOUS PRN PRN Reason: THIS MED IS NOT "PRN" Stop: 10/08/18 10:13 Last Infusion: 09/08/18 15:53 Dose: Infused Vancomycin HCl 1,000 mg/ (Dextrose) 250 mls @ 166.667 mls/hr IV QPM [facility] Stop: 09/15/18 17:59 Ondansetron HCl (Zofran Inj/Pf 4 Mg/2 Ml Sdv) 4 mg IV Q8HP PRN PRN Reason: FOR NAUSEA/VOMITING Stop: 10/07/18 21:16 Trazodone HCl (Desyrel 50 Mg Tablet) 50 mg PO QHS [facility] Stop: 10/07/18 21:59 Last Admin: 09/07/18 21:52 Dose: 50 mg Vancomycin HCl (Vancocin Inj 500 Mg Vial) 500 mg PO Q6 [facility] Stop: 09/15/18 11:59 Last Admin: 09/08/18 11:05 Dose: 500 mg - Allergies Allergies/Adverse Reactions: Sulfa (Sulfonamide Antibiotics) Allergy (Severe, Verified 05/12/18 13:40) ITCHING AND HIVES Hospital Course Hospital Course: H&P: JOSE LUIS JACOBS is a 78 year old female with a past medical 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 Patiently recently after her 's fatal complication of C. difficile colitis. Patient presents with 4 days of abdominal pain seeking evaluation by urologist she was diagnosed with urinary tract infection placed on empiric antibiotics but had worsening of symptoms including diarrhea. Course: Patient was admitted for acute C difficile colitis. This is her 3rd episode of C diff. Patient's recently from septic shock from severe C difficile colitis. She developed diarrhea after she was started on antibiotics for a UTI 5 days prior to admission. Upon presentation, she had diffuse abdominal tenderness with guarding. CT showed diffuse colitis but no megacolon. She was hypotensive and received IV fluid boluses but eventually required levophed infusion. She did have FERDINAND and had a creatinine of 1.3 with a baseline Crea of 0.5. She also had leukocytosis with a WBC of 14.3. She was admitted to the ICU. She was started on oral vancomycin and IV Flagyl. Surgery was consulted and has low threshold for surgical intervention due to her significant abdominal tenderness and CT findings. Patient is NOT amenable to any surgical intervention at all if the need arises. She is a DNR/DNI but asks for all other non-surgical alternative options. 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 Patient's daughter is also familiar with FMT and requests transfer to tertiary facility capable of doing FMT. Discussed case with [facility] Schools, Dr. Williamson who accepted the transfer. Patient will be evaluated upon arrival at [facility] for FMT. Physical Exam Vital Signs: Temp Pulse Resp BP Pulse Ox 98.6 F 96 21 H 102/51 L 97 09/08/18 04:00 09/08/18 10:18 09/08/18 15:15 09/08/18 15:11 09/08/18 15:15 Intake & Output 09/07/18 09/08/18 09/09/18 06:59 06:59 06:59 Intake Total 1932 2243 Output Total 500 1000 Balance 1432 1243 Weight 149 lb 0.52 oz General appearance: PRESENT: no acute distress, well-developed, well-nourished Head exam: PRESENT: atraumatic, normocephalic Eye exam: PRESENT: conjunctiva pink, EOMI, PERRLA. ABSENT: scleral icterus Ear exam: PRESENT: normal external ear exam Mouth exam: PRESENT: moist, tongue midline Neck exam: ABSENT: carotid bruit, JVD, lymphadenopathy, thyromegaly Respiratory exam: PRESENT: clear to auscultation sebastien. ABSENT: rales, rhonchi, wheezes Cardiovascular exam: PRESENT: RRR. ABSENT: diastolic murmur, rubs, systolic murmur Pulses: PRESENT: normal dorsalis pedis pul Vascular exam: PRESENT: normal capillary refill GI/Abdominal exam: PRESENT: normal bowel sounds, soft, tenderness - diffuse tenderness but no rebound. ABSENT: distended, mass, organolmegaly, rebound Rectal exam: PRESENT: deferred Neurological exam: PRESENT: alert, awake, oriented to person, oriented to place , oriented to time, oriented to situation, CN II-XII grossly intact. ABSENT: motor sensory deficit Results Laboratory Results: 09/08/18 04:19 09/08/18 04:19 09/08/18 09/08/18 04:19 04:19 WBC 14.3 H RBC 3.93 Hgb 11.6 L Hct 35.0 L MCV 89 MCH 29.6 MCHC 33.2 RDW 13.5 Plt Count 314 Seg Neutrophils % Not Reportable Lymphocytes % Not Reportable Monocytes % Not Reportable Eosinophils % Not Reportable Basophils % Not Reportable Absolute Neutrophils Not Reportable Absolute Lymphocytes Not Reportable Absolute Monocytes Not Reportable Absolute Eosinophils Not Reportable Absolute Basophils Not Reportable Sodium 135.6 L Potassium 3.7 Chloride 104 Carbon Dioxide 20 L Anion Gap 12 BUN 30 H Creatinine 0.92 Est GFR ( Amer) > 60 Est GFR (Non-Af Amer) 59 L Glucose 98 Calcium 7.7 L Impressions: Abdomen/Pelvis CT 09/07/18 17:41 IMPRESSION: Colitis.
--- NOTE | 2018-09-08 17:12 | PDOC PROGRESS REPORT ---
Subjective Progress Note for:: 09/08/18 Subjective:: States that abdominal pain is less. very thirsty Reason For Visit: SEPSIS C DIFF COLITIS Physical Exam Vital Signs: Temp Pulse Resp BP Pulse Ox 98.6 F 96 19 109/49 L 96 09/08/18 04:00 09/08/18 10:18 09/08/18 10:15 09/08/18 10:10 09/08/18 10:15 Intake & Output 09/07/18 09/08/18 09/09/18 06:59 06:59 06:59 Intake Total 1932 1243 Output Total 500 600 Balance 1432 643 Weight 67.6 kg General appearance: PRESENT: no acute distress, cooperative Respiratory exam: PRESENT: clear to auscultation sebastien Cardiovascular exam: PRESENT: RRR GI/Abdominal exam: PRESENT: other - Abdomen is soft, moderately distended, there is diffuse abdominal tenderness to palpation. But no rebound and no guarding. Results Laboratory Results: 09/08/18 04:19 09/08/18 04:19 09/08/18 09/08/18 04:19 04:19 WBC 14.3 H RBC 3.93 Hgb 11.6 L Hct 35.0 L MCV 89 MCH 29.6 MCHC 33.2 RDW 13.5 Plt Count 314 Seg Neutrophils % Not Reportable Lymphocytes % Not Reportable Monocytes % Not Reportable Eosinophils % Not Reportable Basophils % Not Reportable Absolute Neutrophils Not Reportable Absolute Lymphocytes Not Reportable Absolute Monocytes Not Reportable Absolute Eosinophils Not Reportable Absolute Basophils Not Reportable Sodium 135.6 L Potassium 3.7 Chloride 104 Carbon Dioxide 20 L Anion Gap 12 BUN 30 H Creatinine 0.92 Est GFR ( Amer) > 60 Est GFR (Non-Af Amer) 59 L Glucose 98 Calcium 7.7 L Impressions: Abdomen/Pelvis CT 09/07/18 17:41 IMPRESSION: Colitis. Assessment & Plan - Diagnosis (1) C. difficile colitis Is this a current diagnosis for this admission?: Yes Plan: Still with diffuse abdominal tenderness to palpation. I believe she is behind in her fluids. Will give her normal saline IV bolus. I have again discussed with the patient surgical intervention. Patient refuses colon resection even if it means that she will of her C. difficile colitis. Will continue supportive care. Patient is however willing to undergo a fecal transplant. I have discussed this case with gastroenterology at [facility]. They are conferring with their infectious disease staff about this possibility for her. We will seek transfer to obtain fecal transplant if possible.
[2018-09-08] MEDS ORDERED: VANCOMYCIN HCL 1,000 MG in DEXTROSE 5%-WATER 250 ML IV SCH (18:00)
[2018-09-08] MEDS: DESMOPRESSIN ACETATE 0.1 MG TABLET PO SCH (22:16)
[2018-09-08] MEDS: TRAZODONE HCL 50 MG TABLET PO SCH (22:17)
[2018-09-08 23:20] VITALS: BP 104/50
== END 2018-09-08 23:08 | disposition short-term general hospital (02) | DRG 372 ==
LOC: ER 17:07 → EH 21:36 → ICU 22:43
PROVIDERS: ADMIT Internal Medicine; ATTEND Internal Medicine
PROC: 3E0F73Z Introduction of Anti-inflammatory into Respiratory Tract, Via Natural or Artificial Opening (ICD-10-PCS; principal; 2018-09-08)
DX: A04.72 Enterocolitis due to Clostridium difficile, not specified as recurrent (principal); N17.9 Acute kidney failure, unspecified; E78.00 Pure hypercholesterolemia, unspecified; M19.90 Unspecified osteoarthritis, unspecified site; F32.9 Major depressive disorder, single episode, unspecified; Z60.2 Problems related to living alone; Z79.899 Other long term (current) drug therapy; Z88.2 Allergy status to sulfonamides; Z90.49 Acquired absence of other specified parts of digestive tract; Z90.710 Acquired absence of both cervix and uterus; Z82.49 Family history of ischemic heart disease and other diseases of the circulatory system
CPT/HCPCS: 36415; 74177; 80048; 80053; 81001; 83605; 83690; 85025; 87040; 87045; 87077; 87086; 87186; 87205; 87493; 93005; 93010; 96361; 96374; 96375; 99291; J1644; J1720; J1885; J2405; J3370; J3490; J7030; J7060

== ENCOUNTER → 2018-11-15 | Outpatient (CLI) | payer MEDICARE, BC ==
--- NOTE | 2018-11-15 12:03 | WOMENS IMAGING REPORT ---
EXAM DESCRIPTION: 3D SCREENING MAMMO BILAT COMPLETED DATE/TIME: 11/15/2018 11:14 am REASON FOR STUDY: ROUTINE 3D BILATERAL SCREENING,Z12.31 Z12.31 ENCNTR SCREEN MAMMOGRAM FOR MALIGNAN T NEOPLASM OF JENNIE COMPARISON: Multiple since 2010 TECHNIQUE: Standard craniocaudal and mediolateral oblique views of each breast recorded using digita l acquisition and breast tomosynthesis. LIMITATIONS: None. FINDINGS: Findings present which are benign by mammographic criteria. No suspicious masses, calcifi cations or architectural distortion. Pertinent benign findings: Stable benign bilateral breast parenchymal calcifications Read with the assistance of CAD. .[facility] - R2 Cenova Version 1.3 .[facility] - R2 Cenova Version 2.1 .[facility] - R2 Cenova Version 2.4 .[facility] - R2 Cenova Version 2.4 .[facility] - R2 [employer] Driver Version 9.2 Benign mammographic findings may include one or more of the following: Smooth masses, popcorn/rim/co arse calcifications, asymmetries, post-procedure changes, and lesions with long-standing stability. IMPRESSION: BENIGN MAMMOGRAPHIC FINDINGS. BIRADS 2 BREAST DENSITY: b. There are scattered areas of fibroglandular density. BIRAD: 2 BENIGN FINDING(S) RECOMMENDATION: RECOMMENDATION: ROUTINE SCREENING COMMENT: The patient has been notified of the results by letter per SA requirements. Additional no tification policies are in place for contacting patient with suspicious or incomplete findings. Quality ID #[id number]: The [employer] recommends an annual screening mammogram for women aged 40 years or over. This facility utilizes a reminder system to ensure that all patients receive reminder letters, and/or direct phone calls for appointments. This includes reminders for routine scr eening mammograms, diagnostic mammograms, or other Breast Imaging Interventions when appropriate. Th is patient will be placed in the appropriate reminder system. The [employer] (ACR) has developed recommendations for screening MRI of the breast s in certain patient populations, to be used in conjunction with mammography. Breast MRI surveillanc e may be appropriate for women with more than 20% lifetime risk of developing breast cancer as deter mined by genetic testing, significant family history of the disease, or history of mantle radiation f or Hodgkins Disease. ACR Practice Guidelines 2008. DBT Technology DBT is a type of tomographic mammography. With conventional mammography, overlapping breast tissue ma y make lesions difficult to detect, even with good compression. DBT uses an x-ray tube that rotates a round the breast, taking images at different angles. These images are then combined to create thin sl ices of the breast that the radiologist can view as a 3D reconstruction. The iFlexMe unit can perform full-field digital mammograms (2D imaging); or DBT (3D imaging); or both, in a combination mode that quickly performs both the mammogram and the tomosynthesis scan while the breast is still compressed. PQRS 6045F: Fluoroscopic imaging is not utilized for breast tomosynthesis. TECHNICAL DOCUMENTATION: FINDING NUMBER: (1) ASSESSMENT: (1) JOB ID: [id number] [employer]- All Rights Reserved Reading location - IP/workstation name: [email or web address]
== END ==
LOC: WI 10:48
PROVIDERS: ATTEND Family Medicine
DX: Z12.31 Encounter for screening mammogram for malignant neoplasm of breast (principal)
CPT/HCPCS: 77063; 77067

== ENCOUNTER → 2019-01-17 | Outpatient (CLI) | payer MEDICARE, BC ==
[2019-01-18 09:47] LABS: ALANINE AMINOTRANSFERASE 24 U/L (9-52); ALBUMIN 4.3 g/dL (3.5-5.0); ALKALINE PHOSPHATASE 35 U/L (38-126); ANION GAP 6 (5-19); ASPARTATE AMINO TRANSFERASE 37 U/L (14-36); BILIRUBIN,DIRECT 0.3 mg/dL (0.0-0.4); BILIRUBIN,TOTAL 0.7 mg/dL (0.2-1.3); BLOOD UREA NITROGEN 28 mg/dL (7-20); CALCIUM 10.2 mg/dL (8.4-10.2); CARBON DIOXIDE 27 mmol/L (22-30); CHLORIDE 108 mmol/L (98-107); CHOLESTEROL 161.88 mg/dL (0-200); GLUCOSE 89 mg/dL (75-110); POTASSIUM 4.1 mmol/L (3.6-5.0); SODIUM 140.6 mmol/L (137-145); TRIGLYCERIDES 55 mg/dL (<150)
[2019-01-18 09:58] LABS: DIRECT LDL 68 mg/dL (<100)
== END ==
LOC: LAB 08:48
PROVIDERS: ATTEND Internal Medicine
DX: R06.09 Other forms of dyspnea (principal); R00.2 Palpitations; I34.0 Nonrheumatic mitral (valve) insufficiency; E78.5 Hyperlipidemia, unspecified; R53.83 Other fatigue; M19.90 Unspecified osteoarthritis, unspecified site; Z79.899 Other long term (current) drug therapy
CPT/HCPCS: 36415; 80053; 80061

== ENCOUNTER → 2019-03-06 | Outpatient (CLI) | payer MEDICARE, BC ==
[2019-03-06 10:04] LABS: HEMATOCRIT 40.9 % (36.0-47.0); HEMOGLOBIN 13.6 g/dL (12.0-15.5); MEAN CORPUSCULAR HEMOGLOBIN 30.7 pg (27.0-33.4); MEAN CORPUSCULAR HGB CONC 33.4 g/dL (32.0-36.0); MEAN CORPUSCULAR VOLUME 92 fl (80-97); PLATELET COUNT 268 10^3/uL (150-450); RED BLOOD COUNT 4.45 10^6/uL (3.72-5.28); RED CELL DISTRIBUTION WIDTH 12.7 % (11.5-14.0); WHITE BLOOD COUNT 4.3 10^3/uL (4.0-10.5)
[2019-03-06 10:26] LABS: ANION GAP 6 (5-19); BLOOD UREA NITROGEN 25 mg/dL (7-20); CALCIUM 10.2 mg/dL (8.4-10.2); CARBON DIOXIDE 29 mmol/L (22-30); CHLORIDE 106 mmol/L (98-107); CHOLESTEROL 149.65 mg/dL (0-200); GLUCOSE 84 mg/dL (75-110); POTASSIUM 4.6 mmol/L (3.6-5.0); TRIGLYCERIDES 40 mg/dL (<150)
[2019-03-06 10:58] LABS: DIRECT LDL 67 mg/dL (<100)
== END ==
LOC: LAB 09:21
PROVIDERS: ATTEND Family Medicine
DX: E78.2 Mixed hyperlipidemia (principal); I10 Essential (primary) hypertension; D64.9 Anemia, unspecified; Z79.899 Other long term (current) drug therapy
CPT/HCPCS: 36415; 80048; 80061; 83036; 84443; 85027

== ENCOUNTER → 2019-11-19 | Outpatient (CLI) | payer MEDICARE, BC ==
--- NOTE | 2019-11-19 12:52 | WOMENS IMAGING REPORT ---
EXAM DESCRIPTION: 3D SCREENING MAMMO BILAT COMPLETED DATE/TIME: 11/19/2019 9:59 am REASON FOR STUDY: Z12.31 ENCOUNTER FOR SCREENING MAMMOGRAM FOR MALIGNANT NEOPLASM OF BREAST Z12.31 ENCNTR SCREEN MAMMOGRAM FOR MALIGNANT NEOPLASM OF JENNIE COMPARISON: Multiple since 2008 EXAM PARAMETERS: Standard craniocaudal and mediolateral oblique views of each breast recorded using digital acquisition and breast tomosynthesis. Read with the assistance of CAD. .[facility] - [employer] Version 9.2 LIMITATIONS: None. FINDINGS: Findings present which are benign by mammographic criteria. No suspicious masses, calcific ations or architectural distortion. Pertinent benign findings: Benign bilateral breast parenchymal calcifications. Benign mammographic findings may include one or more of the following: Smooth masses, popcorn/rim/coa rse calcifications, asymmetries, post-procedure changes, and lesions with long-standing stability. IMPRESSION: BENIGN MAMMOGRAPHIC FINDINGS. BIRADS 2 BREAST DENSITY: c. The breasts are heterogeneously dense, which may obscure small masses. BIRAD: ASSESSMENT: 2 BENIGN FINDING(S) RECOMMENDATION: ROUTINE SCREENING Please continue yearly screening mammography/tomosynthesis in November 2020 COMMENT: The patient has been notified of the results by letter per MQSA requirements. Additional no tification policies are in place for contacting patient with suspicious or incomplete findings. Quality ID #[id number]: The [employer] recommends an annual screening mammogram for women aged 40 years or over. This facility utilizes a reminder system to ensure that all patients receive reminder letters, and/or direct phone calls for appointments. This includes reminders for routine scr eening mammograms, diagnostic mammograms, or other Breast Imaging Interventions when appropriate. Th is patient will be placed in the appropriate reminder system. TECHNICAL DOCUMENTATION: FINDING NUMBER: (1) ASSESSMENT: (1) JOB ID: [id number] [employer]- All Rights Reserved Reading location - IP/workstation name: [facility]
== END ==
LOC: WI 09:31
PROVIDERS: ATTEND Family Medicine
DX: Z12.31 Encounter for screening mammogram for malignant neoplasm of breast (principal)
CPT/HCPCS: 77063; 77067

== ENCOUNTER → 2020-03-15 | Outpatient (CLI) | payer MEDICARE, BC ==
[2020-03-15 10:38] LABS: HEMATOCRIT 38.6 % (36.0-47.0); HEMOGLOBIN 13.1 g/dL (12.0-15.5); MEAN CORPUSCULAR HEMOGLOBIN 30.7 pg (27.0-33.4); MEAN CORPUSCULAR HGB CONC 33.9 g/dL (32.0-36.0); MEAN CORPUSCULAR VOLUME 91 fl (80-97); PLATELET COUNT 251 10^3/uL (150-450); RED BLOOD COUNT 4.26 10^6/uL (3.72-5.28); RED CELL DISTRIBUTION WIDTH 13.5 % (11.5-14.0); WHITE BLOOD COUNT 5.7 10^3/uL (4.0-10.5)
[2020-03-15 10:50] LABS: ANION GAP 5 (5-19); BLOOD UREA NITROGEN 36 mg/dL (7-20); CALCIUM 10.1 mg/dL (8.4-10.2); CHOLESTEROL 158.13 mg/dL (0-200); GLUCOSE 83 mg/dL (75-110); POTASSIUM 4.4 mmol/L (3.6-5.0); TRIGLYCERIDES 34 mg/dL (<150)
[2020-03-15 10:56] LABS: CARBON DIOXIDE 30 mmol/L (22-30); CHLORIDE 103 mmol/L (98-107)
[2020-03-15 11:02] LABS: DIRECT LDL 84 mg/dL (<100)
== END ==
LOC: OD 08:43
PROVIDERS: ATTEND Family Medicine
DX: E78.2 Mixed hyperlipidemia (principal); I10 Essential (primary) hypertension; D64.9 Anemia, unspecified; Z79.899 Other long term (current) drug therapy
CPT/HCPCS: 36415; 80048; 80061; 83036; 84443; 85027

== ENCOUNTER → 2020-07-08 | Outpatient (CLI) | payer MEDICARE, BC ==
[2020-07-08 12:21] LABS: IRON(TIBC) 98.9 ug/dL (37-170)
[2020-07-08 12:40] LABS: FREE T4 (FREE THYROXINE) 1.2 ng/dL (0.78-2.19)
[2020-07-08 12:54] LABS: THYROID STIMULATING HORMONE 0.87 uIU/mL (0.47-4.68)
[2020-07-08 14:53] LABS: ABSOLUTE MONOCYTES (AUTO) 0.3 10^3/uL (0.1-1.4); ABSOLUTE NEUT (AUTO) 4.2 10^3/uL (1.7-8.2); BASOPHILS % (AUTO) 0.5 % (0-2); EOSINOPHILS % (AUTO) 0.8 % (0-6); HEMATOCRIT 37.1 % (36.0-47.0); HEMOGLOBIN 12.7 g/dL (12.0-15.5); LYMPHOCYTES % (AUTO) 17.5 % (13-45); MEAN CORPUSCULAR HEMOGLOBIN 30.9 pg (27.0-33.4); MEAN CORPUSCULAR HGB CONC 34.2 g/dL (32.0-36.0); MEAN CORPUSCULAR VOLUME 90 fl (80-97); MONOCYTES % (AUTO) 5.7 % (3-13); PLATELET COUNT 225 10^3/uL (150-450); RED CELL DISTRIBUTION WIDTH 13.1 % (11.5-14.0); SEGMENTED NEUTROPHILS % (AUTO) 75.5 % (42-78); TOTAL CELLS COUNTED % (AUTO) 100 %; WHITE BLOOD COUNT 5.5 10^3/uL (4.0-10.5)
[2020-07-09 07:06] LABS: LUTEINIZING HORMONE 68.8 mIU/mL (.)
== END ==
LOC: OD 11:19
PROVIDERS: ATTEND Physician Assistant Medical
DX: L65.9 Nonscarring hair loss, unspecified (principal)
CPT/HCPCS: 36415; 82728; 83001; 83002; 83540; 83550; 84439; 84443; 84630; 85025